=== PATIENT | male | born 1945 | race American Indian/Alaskan Native ===

== ENCOUNTER 2018-06-21 09:59 | Inpatient (IN) | payer MEDICARE, OTHER ==
[~2018-06-21] VITALS: Ht 177.8 cm; Wt 83.9 kg
[~2018-06-21 09:59] MED LIST: CYCLOBENZAPRINE10 MG PO; FENOFIBRATE160 MG PO; LEVOTHYROXINE25 MCG PO; METFORMIN HCL500 MG PO; NIFEDIPINE ER30 M1 PO; NORCO 7.5-3251 EACH PO; OMEGA-31000 MG PO; SIMVASTATIN40 MG PO; VITAMIN D33000 UNIT PO
--- OUTSIDE RECORDS SUMMARY | 2018-06-21 10:02 | XMS ---
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 Tyesha has no Care Guidelines for this patient. María VISIT COUNT (12 MO.) 1 BALBIR [place] TOTAL 1 NOTE: Visits indicate total known visits. ED/UCC VISIT TRACKING (12 MO.) 06/21/2018 10:00 BALBIR [place] TYPE: Emergency COMPLAINT: - L KNEE PAIN/INJURY INPATIENT VISIT TRACKING (12 MO.) No inpatient visits to display in this time frame [email or web address]
[2018-06-21] MEDS ORDERED: MAGNESIUM400 M1 PO (11:55)
--- NOTE | 2018-06-21 13:16 | EKG ---
[facility] [address] [facility] [place] [address] Signed Normal sinus rhythm Normal ECG No previous ECGs available Confirmed by WESLEY MCELROY MD ([id number]) on 06/21/2018 1:16:14 PM Electronically Signed By: WESLEY MCELROY MD 06/21/18 1316 PATIENT NAME: YESIKA RODRIGUEZ Alec Electrocardiogram DATE OF : 47 PHYSICIAN: WESLEY MCELROY MD REPORT #: [id number] REPORT IS CONFIDENTIAL AND NOT TO BE RELEASED WITHOUT AUTHORIZATION
--- NOTE | 2018-06-21 13:54 | NUR ---
06/21/18 1354 Sheets,Ingrid 1347 PT ARRIVED TO PACU DROWSY, RESP EVEN AND UNLABORED ON 6L VIA MASK. PT WAKES TO VERBAL STIMULI AND DENIES PAIN AND NAUSEA. PT REPORTS TOES ARE NUMB.
--- NOTE | 2018-06-21 14:37 | NUR ---
arrived to room 115 on bed with help from Ingrid FRANKLIN from PACU. report received. patient states no pain currently. can feel feet and moves toes, peripheral pulses present and palpable. ice pack applied to left knee area. some drainage noted on dresssing on left side just below knee around one of the pins, about 2 inches in diameter.
--- NOTE | 2018-06-21 14:52 | NUR ---
DR MORA NOTIFIED OF HOSPITALIST CONSULT.
--- NOTE | 2018-06-21 15:09 | NUR ---
IV IN LEFT AC IS PRESENT. 20G, FLOWING WELL.
--- NOTE | 2018-06-21 16:34 | NUR ---
CONTINUES TO REST IN BED WITH FAMILY VISITING. PATIENT STATES PAIN DID NOT GET BETTER WITH THE 1 PILL OF OXYCODONE SO A SECOND DOSE GIVEN. SOME SMALL AMOUNT OF SANGUINESS DRAINAGE ON FRONT PIN JUST BELOW KNEE ABOUT 3/4" IN DIAMETER.
--- NOTE | 2018-06-21 16:45 | NUR ---
Medications reconciled with patient and
--- NOTE | 2018-06-21 19:55 | NUR ---
REPORT RECEIVED, PT RESTING IN BED, O2 SAT 96%, PT'S LEFT LEG ELEVATED ON PILLOW, MODERATE AMOUNT OF DRAINAGE NOTED FROM LEFT LEG SURGICAL INCISION, DAY SHIFT RN STATES THAT DRAINAGE IS UNCHANGED FROM PREVIOUS, PT EDUCATED TO UTILIZE CALL LIGHT IF ANY NEEDS ARISE, PT AGREEABLE, PT DENIES ANY REQUESTS AT THIS TIME, CALL LIGHT WITHIN REACH, FALL PRECAUTIONS IN PLACE, IV FLUIDS INFUSING PER EMAR WNL.
--- NOTE | 2018-06-21 21:13 | NUR ---
PT RESTING IN BED, PT STATES PAIN IN LEFT LEG IS 7-8/10, PT GIVEN PRN OXYCODONE X2 PER EMAR, PT RESTING IN BED, EXTERNAL FIXATION APPEARS INTACT, MODERATE AMOUNT OF DRAINAGE NOTED ON GAUZE, CHUX REPLACED BENEATH, NO NEW DRAINAGE NOTED FROM PREVIOUS INSPECTION, PT'S LEFT LEG ELEVATED ON PILLOW, PULSES FELT, EQUAL, CAP REFILL WNL, PT STATES HE DOES HAVE SOME REMAINING NUMBNESS/TINGLING HOWEVER THE PATIENT STATES IS SLIGHT AND NOTES PALPATION, SCD ON RIGHT LEG, HEEL PROTECTORS ON, PT ON CPOX, O2 SAT 96% ON RA, DENIES SOB/CP, DENIES NAUSEA, IV FLUIDS INFUSING PER EMAR, EDUCATION PROVIDED REGARDING MEDICATIONS AND SIDE EFFECTS, PT AGREEABLE TO POC, HEART SOUNDS REGULAR, BT ACTIVE, LS COURSE IN LEFT LOBES, SLIGHT WHEEZE NOTED IN RIGHT LOBES, PT ENCOURAGED TO COUGH/ DEEP BREATH WELL USE IS. PT AGREEABLE. PT DENIES ANY NEEDS AT THIS TIME, FALL PRECAUTIONS IN PLACE, CALL LIGHT WITHIN REACH.
--- NOTE | 2018-06-21 21:59 | NUR ---
PT RESTING IN BED, EYES CLOSED, BREATHS EVEN, UNLABORED, NO REQUESTS AT THIS TIME, O2 SAT 95% ON RA, CALL LIGHT WITHIN REACH, FALL PRECAUTIONS IN PLACE.
--- NOTE | 2018-06-21 23:31 | NUR ---
SCHEDULED MEDS ADMINISTERED, PT AOX4, APPROPRIATE, PT GIVEN NEW ICE TO LEFT LEG, EXTERNAL FIXATION APPEARS INTACT, PT'S PULSES REMAIN EQUAL, CAP REFILL WNL. HEEL PROTECTORS ON, SCD ON PT'S RIGHT LEG. NO C/O SIGNIFICANT PAIN, PT DESCRIBES "SORE", IV FLUIDS INFUSING PER EMAR, EDUCATION PROVIDED REGARDING PAIN MANAGEMENT. MODERATE SANGUINEOUS DRAINAGE REMAINS UNCHANGED FROM PREVIOUS ASSESSMENT, NO REQUESTS AT THIS TIME, CALL LIGHT WITHIN REACH, FALL PRECAUTIONS IN PLACE.
--- NOTE | 2018-06-22 00:37 | NUR ---
PT GIVEN PRN PAIN MEDICATION PER EMAR PER PT'S REQUEST, PT STATES PAIN OF 7/10 IN LEFT LEG, NO FURTHER REQUESTS AT THIS TIME, CALL LIGHT WITHIN REACH, SCD'S ON, HEEL PROTECTORS ON, FALL PRECAUTIONS IN PLACE, IV FLUIDS INFUSING PER EMAR.
--- NOTE | 2018-06-22 02:05 | NUR ---
VITALS AND I&OS DONE AND CHARTED. FRESH WATER GIVEN. I INFORMED HIS RN PEDRO THAT PT ASKED FOR PAIN MEDS. BEDSIDE TABLE AND CALL LIGHT IN REACH.
--- NOTE | 2018-06-22 02:15 | NUR ---
PT AWAKE, AOX4, VSS, PT GIVEN NEW ICE APPLIED TO PT'S LEFT LEG, NO C/O SIGNIFICANT PAIN, EXTERNAL FIXATION INTACT, DRAINAGE REMAINS UNCHANGED, PULSES EQUAL, CAP REFILL WNL, SCD ON RIGHT FOOT, HEEL PROTECTORS ON, PILLOW UNDER LEFT LEG, ASSESSMENT COMPLETE, PT DENIES ANY NUMBNESS OR TINGLING IN BILAT EXTREMITIES, PT'S WHEEZES NOTED IN BILATERAL LOWER LOBES, PT ENCOURAGED TO COUGH/ DEEP BREATH, ALSO ENCOURAGED TO USE IS, PT RECEPTIVE TO EDUCATION. NO REQUESTS AT THIS TIME, CALL LIGHT WITHIN REACH, FALL PRECAUTIONS IN PLACE. IV FLUIDS INFUSING PER EMAR WNL.
--- NOTE | 2018-06-22 02:40 | NUR ---
PT RESTING IN BED, EYES CLOSED, BREATHS EVEN, UNLABORED, NO REQUESTS AT THIS TIME, CALL LIGHT WITHIN REACH, FALL PRECAUTIONS IN PLACE. SCD'S ON, HEEL PROTECTORS ON, PILLOW UNDER LEFT LEG.
--- NOTE | 2018-06-22 05:04 | NUR ---
CALL LIGHT ANSWERED, PT REQUESTING PRN PAIN MEDICATION FOR 8/10 PAIN IN LEFT LEG, PT STATES THAT PREVIOUS PAIN MEDICATION HAS WORN OFF, PT GIVEN PRN PAIN MEDICATION AT THIS TIME, PT DENIES NEED FOR FURTHER PRN PAIN MEDICATION FOR BREAK THROUGH PAIN, DISCUSSED PAIN MANAGEMENT WITH PT WELL MEDICATIONS, PT DENIES FURTHER NEED FOR PAIN MANAGEMENT AT THIS TIME, NEW ICE PROVIDED, SMALL INCREASE IN SANGUINEOUS DRAINAGE NOTED ON GAUZE BEHIND PT'S KNEE, DISCUSSED WITH TRANSPORTATION PROGRAM DIRECTOR WELL BREAD PAN GREASER, DRAINAGE APPEARS DRY, EXTERNAL FIXATOR APPEARS INTACT, PILLOW REMAINS UNDER LEFT LEG, HEEL PROTECTORS ON, PULSES EQUAL, SCD APPLIED TO PT'S RIGHT LEG. PT DENIES ANY REQUESTS AT THIS TIME, IV FLUIDS INFUSING PER EMAR, CALL LIGHT WITHIN REACH, FALL PRECAUTIONS IN PLACE.
--- NOTE | 2018-06-22 06:20 | NUR ---
PT AOX4 THIS SHIFT, PT RECEIVED PRN PAIN MEDICATION X3 THIS SHIFT RELATED TO PAIN IN PT'S LEFT LEG, ICE APPLIED TO PT'S LEFT LEG, PILLOW UNDER LEG WELL. HEEL PROTECTORS ON, SCD'S ON RIGHT LEG, IV FLUIDS INFUSING PER EMAR, PT RECEIVED SCHEDULED ABX X2 THIS SHIFT PER EMAR. EXTERNAL FIXATION TO LEFT LEG REMAINS INTACT, SMALL AMOUNT OF SANGUINEOUS DRAINAGE OVER THE NIGHT. PT'S VSS, URINE OUTPUT QS, AFEBRILE. =
--- NOTE | 2018-06-22 06:54 | NUR ---
PT C/O 11/19 PAIN, REQUESTING FURTHER PAIN MANAGEMENT, DR. MORSE CALLED, NEW ORDER FOR OXYCODONE 5-15 MG Q3 PRN PAIN, ALSO NEW ORDER FOR GABAPENTIN 300 MG PO TID, NO FURTHER NEW ORDERS, ALSO NOTIFIED THE MD OF PT'S CURRENT SWELLING WELL SMALL AMOUNT OF INCREASED SANGUINEOUS DRAINAGE. NO FURTHER NEW ORDERS. TORB.
--- NOTE | 2018-06-22 07:28 | NUR ---
BEDSIDE REPORT RECEIVED FROM NOEMI VASQUEZ. PT RESTING SUPINE IN BED, REPORTS PAIN TO LEFT LEG, NOEMI VASQUEZ TO ADMINISTER PRN PO PAIN MEDS. LEFT LOWER LEG ELEVATED ON PILLOW AND EXTERNAL FIXATION DEVICE INTACT SOME BLEEDING NOTED TO FRONT KNEE PIN AND PIN TO LEFT LATERAL ASPECT OF LE. PER NOEMI VASQUEZ MD IS AWARE. CMS INTACT DISTALLY TO BILAT LE'S. CALL LIGHT AND H20 IN REACH.
--- NOTE | 2018-06-22 07:30 | NUR ---
PT GIVEN PRN PAIN MEDICATION PER EMAR PER PT'S REQUEST, PT TOLERATED WELL, NO FURTHER REQUESTS AT THIS TIME, HEEL PROTECTORS ON, SCD'S ON, PILLOW UNDER LEFT LEG, EXTERNAL FIXATION INTACT, CALL LIGHT WITHIN REACH, FALL PRECAUTIONS IN PLACE. IV FLUIDS INFUSING PER EMAR WNL.
--- NOTE | 2018-06-22 10:31 | OR ---
[facility] [address] [place], [place] [address] Signed DATE OF OPERATION: 06/21/2018 SURGEON: Avtar Gallego MD PREOPERATIVE DIAGNOSIS: Grade 2 open tibial plateau fracture, Schatzker V. POSTOPERATIVE DIAGNOSIS: Grade 2 open tibial plateau fracture, Schatzker V. PROCEDURES PERFORMED: 1. Irrigation and debridement of skin, subcutaneous tissue, and bone. 2. Left knee arthrotomy with irrigation and debridement of open knee injury. 3. Closed reduction, left proximal tibia. 4. Application of external fixator, left proximal tibia. GUM SPRAYER: Yoanna Gutierrez PA-C. Yoanna was present and critical for positioning, retraction, and wound closure and application of the external fixator. ANESTHESIA: Spinal. BLOOD LOSS: Minimal. TOURNIQUET TIME: Zero. IMPLANTS: Synthes large ex fix. BRIEF HISTORY: Vignesh is a 72-year-old gentleman with history of a ground level fall on the ice this morning. He was transported by ambulance to the emergency department where radiographs revealed displaced bicondylar proximal tibia fracture with subcutaneous air in the entire knee and tracking down both medial and lateral tibia. He did have a 2 cm transverse laceration at the tibial tuberosity. Risks and benefits of operative treatment were discussed with him, he elected to proceed. Electronically Signed By: AVTAR GALLEGO MD 06/22/18 1031 PATIENT NAME: VIGNESH RODRIGUEZ OPERATIVE REPORT DATE OF : 47 REPORT #: [id number] PHYSICIAN: AVTAR GALLEGO MD PCP: ANABELA SCOTT NP REPORT IS CONFIDENTIAL AND NOT TO BE RELEASED WITHOUT AUTHORIZATION [facility] [address] [place], [place] [address] Signed DESCRIPTION OF PROCEDURE: Once consent was obtained, he was taken to the operating room. After adequate anesthesia, he was placed on operating table. All downside pressure points well padded. The left leg was prepped and draped in a standard sterile fashion. The arthrotomy was performed first with the skin incision medially, taken through skin and subcutaneous tissue, median patellar arthrotomy was performed. We did not extend this into the extensor mechanism. The knee was debrided and 3 L of antibiotic irrigation under pulse lavage was used to irrigate the knee. Subcutaneously, we then dissected down to the patellar tendon. The tibial tuberosity appeared to be split on the radiographs and CT, however, the patellar tendon was firmly attached and did not require any further workup. We did notice subcutaneous tunneling from the anterior laceration both medial and laterally. All of this was washed out using 3 L of the antibiotic irrigation under pulse lavage. Once that was completed, two pins were placed in the midshaft tibia under image intensifier guidance, two 5.0 Schanz pins were then placed, one medial and one lateral just below the articular surface and a standard delta frame was built and under closed reduction, the connectors were all tightened. A final pin was then placed in the proximal tibia just below the fracture and attached to the tyesha and tightened. Excellent stability was obtained at the end of the procedure. The arthrotomy was closed using #2 Stratafix, #0 Stratafix for subcutaneous tissue, and michale for the skin and the laceration. The wounds were dressed with a Mepilex Ag dressing and sterile gauze for all pin sites. It was then wrapped with two layers of Kerlix. Once this was completed, he was awakened and taken to the recovery room in satisfactory condition. All sponge, needle, and instrument counts were correct. POSTOPERATIVE COURSE: We will keep him in the hospital and plan on return to the operating room Saturday afternoon for repeat washout and conversion to an open reduction and internal fixation with lateral plating system. Avtar Gallego MD BA/NANCYL /[id number] Copies: Electronically Signed By: AVTAR GALLEGO MD 06/22/18 1031 PATIENT NAME: VIGNESH RODRIGUEZ OPERATIVE REPORT DATE OF : 47 REPORT #: [id number] PHYSICIAN: AVTAR GALLEGO MD PCP: ANABELA SCOTT NP REPORT IS CONFIDENTIAL AND NOT TO BE RELEASED WITHOUT AUTHORIZATION [facility] [address] [place] [address] [place] [address] Signed ~ Electronically Signed By: AVTAR GALLEGO MD 06/22/18 1031 PATIENT NAME: VIGNESH RODRIGUEZ OPERATIVE REPORT DATE OF : 47 REPORT #: [id number] PHYSICIAN: AVTAR GALLEGO MD PCP: ANABELA SCOTT NP REPORT IS CONFIDENTIAL AND NOT TO BE RELEASED WITHOUT AUTHORIZATION
--- NOTE | 2018-06-22 12:15 | NUR ---
WENT IN TO PT'S ROOM TO ASSESS PAIN CONTROL. STATES IT IS STILL HIGH 8\10 BUT TOLERABLE NOW. TOLD HIM TO MAKE SURE TO CALL IF HE NEEDED ANYTHING. INFORMED HIM THAT I WOULD PERSONALLY BE CHECKING IN ON HIS PAIN CONTROL AND WOULD CALL DR MORSE IF NEEDED. HE STATED THAT IT WAS CONTROLLED ENOUGH RIGHT NOW TO NOT CALL THE
--- NOTE | 2018-06-22 13:25 | NUR ---
PT RESTING RECLINED IN CHAIR, RESPIRATIONS EVEN AND UNLABORED. ASSESSMENT COMPLETED. PT STATES PAIN IS TOLERABLE TO LEFT LE. FRESH WATER AND CALL LIGHT IN REACH. I/O'S DOCUMENTED, PT CONTINUES TO PRODUCE QS CLEAR ORANGE URINE OUTPUT.
--- NOTE | 2018-06-22 15:13 | NUR ---
PT SITTING UP IN CHAIR REPORTS 8/10 PAIN SO PO OXYCODONE 15MG ADMINISTERED, PO GABAPENTIN ADMINISTERED . IV OFIRMEV ADMINISTERED. PER PT REQUEST PT ASSISTED UP TO BEDSIDE COMMODE WITH 3PA AND FWW. CALL LIGHT IN REACH AND PT AGREES TO USE WHEN FINISHED ON COMMODE. NO FURTHER NEEDS/CONCERNS VOICED.
--- NOTE | 2018-06-22 15:20 | NUR ---
PT RESTING IN CHAIR, LEFT LOWER EXTREMITY ELEVATED ON PILLOW, DISTAL LLE CMS INTACT. CALL LIGHT AND H20 IN REACH. NO NEEDS/CONCERNS VOICED.
--- NOTE | 2018-06-22 16:00 | NUR ---
Fresh ice water provided and ice packs applied to left lower extremity. LLE remains elevated on pillow and pt states he is comfortable. Distal cms intact. Call light,h20 and personal belongings in reach. Pt inquires about time of surgery and was informed it would likely occur early afternoon and was also reminded that he will be made npo after midnight tonight. Pt verbalized understanding no further needs/concerns voiced.
--- NOTE | 2018-06-22 17:17 | NUR ---
PT ASSISTED FROM CHAIR TO BED WITH 2PA AND FWW, PT TOLERATED TRANSFER WELL. WHEN ASKED IF PAIN IS TOLERABLE PT STATES "YEAH FOR NOW". PT AGREES TO USE CALL LIGHT IF PAIN FEELS LIKE IT IS INCREASING. PT VERBALIZED UNDERSTANDING. LLE ELEVATED ON PILLOW, SCD TO RLE. ICE PACKS TO LLE, CMS INTACT TO BILAT FEET. PERSONAL ITEMS, H2O AND CALL LIGHT ARE IN REACH. PT DENIES FURTHER NEEDS OR CONCERNS. IV MAINTENANCE FLUIDS INFUSING.
--- NOTE | 2018-06-22 17:30 | NUR ---
PT STATES THAT HIS PAIN CONTROL IS BETTER THIS EVENING. STILL PAINFUL ON MOVEMENT BUT MORE TOLERABLE THAN EARLIER. PT ABLE TO EAT DINNER AND STATED THAT TURKEY SANDWHICH WAS GOOD.
--- NOTE | 2018-06-22 19:30 | NUR ---
REPORT RECEIVED, PT RESTING IN BED, EYES CLOSED, BREATHS EVEN, NO REQUESTS AT THIS TIME, CALL LIGHT WITHIN REACH, FALL PRECAUTIONS IN PLACE.
--- NOTE | 2018-06-22 20:00 | NUR ---
CALL LIGHT ANSWERED, PT C/O 02/19 PAIN IN HIS LEFT LEG, MOSTLY AROUND HIS KNEE, DR. MORSE CALLED AND NOTIFIED OF PT'S UNCONTROLLED PAIN, NEW ORDER FOR 1MG-2MG DILAUDID PO Q4 PRN BREAK THROUGH PAIN, DR. MORSE INSTRUCTED FOR 2MG DILAUDID TO BE GIVEN NOW. PT GIVEN ORDERED PAIN MED, EDUCATION PROVIDED TO PT REGARDING PAIN MEDICATION, AND TO NOTIFY ME OF PAIN THAT IS UNCONTROLLED. WILL CONTINUE TO MONITOR, PT CURRENTLY RESTING IN BED. ICE APPLIED TO LEFT LEG, PILLOW BENEATH LEG, HEEL PROTECTORS ON, SCD ON RIGHT LEG. NO FURTHER REQUESTS AT THIS TIME, CALL LIGHT WITHIN REACH, FALL PRECAUTIONS IN PLACE.
--- NOTE | 2018-06-22 22:00 | NUR ---
IN ROOM TO ADMIN SCHEDULED MEDS, PT SLIGHTLY DROWSY, EASY TO AROUSE, PT STATES PREVIOUS PAIN MEDICATION HAS STARTED TO HELP BUT NOT ENTIRELY, PT RATES PAIN AT 8/10 IN HIS LEFT LEG/KNEE, PT GIVEN PRN PAIN MEDICATION 15MG OXYCODONE PER EMAR, EDUCATION PROVIDED REGARDING PAIN MANAGEMENT, ASSESSMENT COMPLETE, PT'S LS CLEAR, OCCASIONAL DRY COUGH NOTED, NONPRODUCTIVE, PT ENCOURAGED TO COUGH/DEEP BREATH WELL USE I.S. ON RA, O2 SAT > 95%, BT ACTIVE. PT'S LEFT LEG REMAINS IN EXTERNAL FIXATOR, REMAINS INTACT, NO NEW DRAINAGE NOTED FROM PREVIOUS OBSERVATION, NEW ICE APPLIED TO LEFT LEG. NO SIGNIFICANT WARMTH OR SWELLING NOTED IN PT'S LLE, PULSES EQUAL, HEEL PROTECTORS ON, SCD ON RIGHT LEG. NO REQUESTS AT THIS TIME, CALL LIGHT WITHIN REACH, FALL PRECAUTIONS IN PLACE.
--- NOTE | 2018-06-22 23:03 | NUR ---
PT'S EYES CLOSED, BREATHS EVEN, UNLABORED, ON RA, O2 SAT 97%, PT RESTING IN BED, NO REQUESTS FROM PT AT THIS TIME, CALL LIGHT WITHIN REACH, FALL PRECAUTIONS IN PLACE.
--- NOTE | 2018-06-23 00:33 | NUR ---
PT ASLEEP, EYES CLOSED, BREATHS EVEN, UNLABORED, O2 SAT 97%, ON RA, NO REQUESTS AT THIS TIME, PT NPO SINCE MIDNIGHT, CALL LIGHT WITHIN REACH, FALL PRECAUTIONS IN PLACE, IV FLUIDS INFUSING PER EMAR WNL. SCD'S ON, HEEL PROTECTORS ON.
--- NOTE | 2018-06-23 01:25 | NUR ---
PT AWAKE, STATING "THE PAIN IS STARTING TO CREEP BACK UP ON ME" PT RATED PAIN 5/10, PRN PAIN MEDICATION GIVEN PER EMAR. PT EDUCATED TO NOTIFY THIS RN IF FURTHER PAIN MEDICATION IS REQUIRED, PT AGREED, NO FURTHER REQUESTS AT THIS TIME, IV FLUIDS INFUSING PER EMAR, ASSESSMENT COMPLETE, NO NEW DRAINAGE NOTED ON PT'S DRESSING FROM PREVIOUS ASSESSMENT. CALL LIGHT WITHIN REACH, FALL PRECAUTIONS IN PLACE. SCD'S ON, HEEL PROTECTORS ON, PILLOW UNDER LEFT LEG.
--- NOTE | 2018-06-23 02:00 | NUR ---
PT RESTING IN BED, EYES CLOSED, BREATHS EVEN, UNLABORED, NO REQUESTS AT THIS TIME, ON RA, O2 SAT 96%, CALL LIGHT WITHIN REACH, FALL PRECAUTIONS IN PLACE.
--- NOTE | 2018-06-23 03:00 | NUR ---
PT AWAKE, VOIDING IN URINAL INDEPENDENTLY, PT STATES THAT HE JUST WOKE UP TO URINATE AND NOTES THAT HIS PAIN IS "STARTING TO FLARE BACK UP AGAIN" PT DESCRIBES PAIN 4-5/10, PT GIVEN PRN PAIN MEDICATION PER EMAR PER PT'S REQUEST, NO FURTHER REQUESTS AT THIS TIME, CALL LIGHT WITHIN REACH, FALL PRECAUTIONS IN PLACE, IV FLUIDS INFUSING PER EMAR WNL. SCD'S ON, HEEL PROTECTORS ON, PILLOW BENEATH LEFT LEG.
--- NOTE | 2018-06-23 03:29 | NUR ---
PT AWOKE STATING HIS PAIN IS CURRENTLY AT A 3/10 AND THAT HE IS COMFORTABLE WITH HIS PAIN AT THAT LEVEL, ICE REMOVED FROM PT'S LEG TEMPORARILY PER PT'S REQUEST AFTER HE ASKED FOR A BREAK FROM ICE WHILE SLEEPING. NO FURTHER REQUESTS AT THIS TIME, SCD ON, HEEL PROTECTORS ON, LEFT LEG ON PILLOW, EXTERNAL FIXATOR APPEARS INTACT, NO NEW DRAINAGE, CALL LIGHT WITHIN REACH, FALL PRECAUTIONS IN PLACE. VSS, O2 SAT 99% ON RA.
--- NOTE | 2018-06-23 04:30 | NUR ---
PT RESTING IN BED, AWAKE, USING THE URINAL, PT STATES THAT HIS PAIN REMAINS A 5/10, EDUCATION PROVIDED REGARDING PAIN MANAGEMENT AND MEDICATIONS, PT REQUESTING PRN PAIN MEDICATION. PT GIVEN 10MG OXYCODONE PER PT'S REQUEST PRN PAIN, DISCUSSED WITH ELEMENTARY SCHOOL COUNSELOR, PT'S O2 SAT REMAINS > 95%, NO FURTHER REQUESTS AT THIS TIME, CALL LIGHT WITHIN REACH, FALL PRECAUTIONS IN PLACE, IV FLUIDS INFUSING PER EMAR WNL. SCD'S ON, HEEL PROTECTORS ON, NEW ICE PROVIDED TO PT'S LEFT LEG, PILLOW REMAINS UNDER LEFT LEG, NO SIGNS OF NEW DRAINAGE.
--- NOTE | 2018-06-23 05:00 | NUR ---
PT AOX4, APPROPRIATE, PRN OXYCODONE/DILAUDID FOR PAIN RELATED TO LEFT LEG, NO NEW DRAINAGE NOTED ON LEFT LEG DRESSING, ICE APPLIED TO LEG, SCD ON RIGHT LEG, HEEL PROTECTORS ON BILATERALLY, PILLOW UNDER LEFT LEG WELL. PT HAS BEEN ABLE TO SLEEP THIS SHIFT, ON CPOX DUE TO NARCOTIC USE, O2 SAT > 95% ON RA THROUGHOUT NIGHT, PT NPO SINCE MIDNIGHT FOR UPCOMING SURGERY, IV FLUIDS/ABX INFUSED PER EMAR WNL, VSS, AFEBRILE, URINE OUTPUT QS.
--- NOTE | 2018-06-23 05:19 | NUR ---
PT RESTING IN BED, EYES CLOSED, BREATHS EVEN, UNLABORED, NO REQUESTS AT THIS TIME, CALL LIGHT WITHIN REACH, FALL PRECAUTIONS IN PLACE, O2 SAT 97% ON RA.
--- NOTE | 2018-06-23 06:30 | NUR ---
PT FOUND ASLEEP UPON ENTERING ROOM, PT DROWSY, EASY TO AWAKE, PT RATES PAIN OF 2/10, STATES THAT HE IS COMFORTABLE WITH THAT, AND DECLINES NEED FOR PRN PAIN MEDICATION AT THIS TIME, PT EDUCATED TO NOTIFY IF NEED FOR PRN PAIN MEDICATION ARISES, PT'S VSS, AFEBRILE, URINE OUTPUT QS, HAS BEEN NPO SINCE MIDNIGHT, NO REQUESTS AT THIS TIME, CALL LIGHT WITHIN REACH, FALL PRECAUTIONS IN PLACE. SCD'S ON, HEEL PROTECTORS ON, IV FLUIDS INFUSING PER EMAR WNL.
--- NOTE | 2018-06-23 07:15 | NUR ---
REPORT RECEIVED FROM PEDRO FRANKLIN. PT RESTING IN BED, REPORTS PAIN OF 4/10. 97% O2 SATURATION ON ROOM AIR. IV FLUIDS INFUSING. DRESSING INTACT WITH SMALL AMOUNT OF RED DRAINAGE ABOUT 2" IN DIAMETER. FIXATOR IN PLACE. ICE PACK, SCDS, HEEL PROTECTORS IN PLACE. NO REQUESTS OR COMPLAINTS AT THIS TIME. CALL LIGHT WITHIN REACH.
--- NOTE | 2018-06-23 07:30 | NUR ---
THIS RN TO ROOM WITH PAIN MEDICATION FOR PT FOR 5/10 PAIN IN LLE. PAIN MEDICATION GIVEN. ASSESSMENT DONE. CMS INTACT. PT REPORTS NOMRAL SENSATION AND IS ABLE TO MOVE TOES/LEG. DRESSING CONTINUES TO SHOW 2" RED DRAINAGE DISTAL TO KNEE. NO NEW DRAINAGE NOTED. SCD, HEEL PROTECTORS IN PLACE. ICE PACK REFILLED. BANDAID TO LEFT ELBOW "SCRATCH FROM MY FALL" HAS COME LOOSE, ALLEVYN APPLIED. ALMAS NURSE TO ROOM STATING SURGICAL DEPARTMENT WILL BE COMING TO TAKE PT FOR HIS SURGERY AND A BLOCK FOR PAIN, IN THE NEXT 15-30 MINUTES. OTOLARYNGOLOGY PHYSICIAN CALLED REGARDING MORNING MEDICATIONS. OTOLARYNGOLOGY PHYSICIAN STATES TO GIVE MORNING DOSES OF TYLENOL, GABAPENTIN, AND PANTOPRAZOL BUT HOLD MIRALAZ AND SENNA. SEE MAR FOR MEDICATIONS GIVEN. OR ELECTRONICS ENGINEERING MANAGERANASTASIYA, CALLED REGARDING PRE OP ABX. OR CHARGE STATES THEY WILL TAKE CARE OF THE PRE OP ABX ORDERS AFTER PT ARRIVES TO SURGICAL UNIT. PT SWITCHED TO LR ON STRAIGHT TUBING PER OTOLARYNGOLOGY PHYSICIAN ORDER. PT ABLE TO VOID 300ML BEFORE LEAVING MED/SURG. YARDING AND FOLDING MACHINE OPERATORANASTASIYA FRANKLIN, TO BEDSIDE, REPORT GIVEN. PT WHEELED FROM UNIT. NO ADDITIONAL REQUESTS OR COMPLAINTS AT THIS TIME.
--- NOTE | 2018-06-23 10:12 | NUR ---
PT VOIDS 250 MLS YELLOW URINE IN URINAL.
--- NOTE | 2018-06-23 14:14 | NUR ---
06/23/18 1414 Ingrid Larsen 1406 PT ARRIVED TO PACU ON 3L OXY MASK, RESP EVEN AND UNLABORED. PT DENIES NAUSEA AND PAIN. PT AWAKE OFF AND ON. PT REORIENTED TO PACU.
--- NOTE | 2018-06-23 14:40 | NUR ---
PT ARRIVED FROM PACU. PT DENIES PAIN AND NAUSEA. PT TOLERATING SIPS OF WATER. COFFEE PROVIDED PER PT REQUEST. IV FLUIDS STARTED WITH NEW TUBING. MEDICATIONS GIVEN (SEE MAR). ASSESSMENT DONE. SPINAL LEVEL L1. DRESSING C/D/I. GREEN LIGHT FLASHING ON MANDI CANISTER. ICE PACK IN PLACE. SCD ON. PT PLACED ON CONTINIOUS PULSE OX. O2 SATURATION AT 96% ON ROOM AIR. PT DEMONSTRATES USE OF INCENTIVE SPIROMETER AND REACHES 1200. PT VISITING WITH . BED RAILS UP. BED ALARM ON. CALL LIGHT WITHIN REACH.
--- NOTE | 2018-06-23 15:45 | NUR ---
VITALS AND ASSESSMENT DUE. THIS RN TO BEDSIDE. PT WATCHING TV AND DRINKING COFFEE. PT TOLERATING PUDDING WITHOUT NAUSEA. PT DENIES PAIN. VITALS TAKEN. ASSESSMENT DONE. DRESSING C/D/I AT THIS TIME. ICE IN PLACE. SCD AND HEEL PROTECTORS INPLACE. SPINAL LEVEL NOW S1, PT REPORTS TINGLING IN FEET AND CAN FEEL SCRATCH BUT NOT COLD. PT ASSISTED WITH ORDERING DINNER. NO ADDITIONAL REQUESTS OR COMPLAINTS. BED RAILS UP. CALL LIGHT WITHIN REACH. BED ALARM ON.
--- NOTE | 2018-06-23 16:40 | NUR ---
VITALS AND ASSESSMENT DUE. THIS RN TO BEDSIDE. PT READING ON TABLET AND WATCHING TV. VITALS TAKEN. PT DENIES PAIN AND NAUSEA. ASSESMENT DONE. CMS INTACT WITH SPINAL LEVEL S3 (PT STATES "MY BUTT IS STILL NUMB"). DRESSING C/D/I, GREEN LIGHT FLASHING ON MANDI DRESSING. SCD, HEEL PROTECTORS AND ICE PACK IN PLACE. NO ADDITIONAL REQUESTS OR COMPLAINTS AT THIS TIME. BED RAILSUP. BED ALARM ON. CALL LIGTH WITHIN REACH.
--- NOTE | 2018-06-23 18:19 | NUR ---
PT HERE FOR LEFT OPEN TIBIAL FRACTURE. PT BACK TO SURGERY TODAY. EXTERNAL FIXATION DEVICE REMOVED. NEW DRESINGS INCLUDING MANDI DRESSING NOW IN PLACE. DRESSINGS C/D/I THIS SHIFT. GREEN LIGHT FLASHING ON MANDI CANISTER. PT HAS DENIES PAIN SINCE SURGERY. SPINAL RESOLVED. PT VOIDING QUANTITY SUFFICIENT. ICE PACK IN PLACE. LEG ELEVATED ON 1 PILLOW PER MD ORDER. SCD'S AND HEEL PROTECTORS IN PLACE. PT TOLERATING REGULAR DIET AND DENIES NAUSEA THIS SHIFT. CONTINIOUS PULSE OX IN PLACE WITH O2 SATURATIONS ABOVE 92% ON ROOM AIR. PT USES CALL LIGHT APPROPRIATLY.
--- NOTE | 2018-06-23 19:27 | NUR ---
RECIEVED CHANGE OF SHIFT REPORT FROM DELANO FRANKLIN. URINAL EMPTIED. PATIENT LAYING AWAKE IN BED. WHITE BOARD UPDATED. PATIENT REPORTS PAIN A "1-2/10". CALL LIGHT WITHIN REACH. NO MORE NEEDS AT THIS TIME.
--- NOTE | 2018-06-23 20:45 | NUR ---
ASSESSMENT COMPLETE. MEDICATIONS ADMINISTERED PER JUL ORDER. PATIENT REPORTS PAIN IN LLE "4/10", PRN PAIN MEDICATION PROVIDED PER JUL ORDER. LLE ELEVATED ON PILLOW PER JUL ORDER. SCDs AND HEEL PROTECTORS IN PLACE. FRESH ICE PLACED ON LLE PER ORDER. IV FLUIDS INFUSING PER JUL ORDER. PATIENT DENIES CHEST PAIN, SOB, OR DIFFICULTY BREATHING. DRESSING ON LLE IS CDI, NO SIGNS OF NEW DRAINAGE. STRONG PULSES IN ALL EXTREMITIES, WARM TO TOUCH. PATIENT DENIES HAVING ANY DEFICITS IN SENSATION IN BLE. IV FLUIDS INFUSING PER JUL ORDER. IV PATENT, WNL. CALL LIGHT WITHIN REACH. NO MORE NEEDS AT THIS TIME.
--- NOTE | 2018-06-23 22:47 | NUR ---
ROUNDED ON PATIENT RESTING IN BED WITH EYES CLOSED, RICARDA AWOKE TO THIS RN WALKING IN ROOM. PATIENT REPORTS PAIN IN LLE IS A "2-3/10", PATIENT STATES PAIN IS "BETTER". CPOX WNL. CURTAIN ON WINDOW CLOSED AND LIGHT TURNED DOWN IN ROOM PER PATIENT REQUEST. CALL LIGHT WITHIN REACH. NO MORE NEEDS AT THIS TIME.
--- NOTE | 2018-06-23 23:21 | NUR ---
ROUNDED ON PATIENT TO REPLACE IV FLUID BAG PER MAR ORDER. CPOX, WNL. CALL LIGHT WITHIN REACH. NO MORE NEEDS AT THIS TIME.
--- NOTE | 2018-06-24 01:30 | NUR ---
TEMP RETAKE AFTER USING THE IS.
--- NOTE | 2018-06-24 01:41 | NUR ---
ASSESSMENT COMPLETE. DISCUSSED WITH PATIENT THEIR CURRENT PAIN LEVEL, PATIENT STATES THAT FELT THEIR PAIN WAS ADEQUATELY CONTROLLED WITH X1 PRN 5MG OXYCODONE EARLIER, PATIENT WOULD LIKE TO JUST HAVE X1 PRN 5 MG OXYCODONE AT THIS TIME. PATIENT STATES PAIN LEVEL IS A "4/10" IN LLE, PRN PAIN MEDICATION PROVIDED. DRESSING ON LLE IS CDI, NO NEW DRAINAGE NOTED. MANDI DRESSING FLASHING GREEN LIGHT. LLE ELEVATED ON PILLOW PER ORDER. ICE APPLIED PER ORDER. HEEL PROTECTORS IN PLACE. SENSATION INTACT PER PATIENT REPORT. STRONG PERIPHERAL PULSES. CPOX, WNL. IV FLUIDS INFUSING PER JUL ORDER. CALL LIGHT WITHIN REACH. URINAL AT BEDSIDE. NO MORE NEEDS AT THIS TIME.
--- NOTE | 2018-06-24 04:27 | NUR ---
Pt requested pain meds. Medicated with 15mg oxycodone po. Pt voided 600ml yellow urine in urinal. Ancef 2Gms IVP given as directed. IV site intact.
--- NOTE | 2018-06-24 05:28 | NUR ---
ASSESSMENT COMPLETE. PATIENT DENIES HAVING CHEST PAIN, SOB, OR DIFFICULTY BREATHING. PATIENT DENIES PAIN IN LLE, PATIENT STATES PRN PAIN MEDICATION IS HELPING. DRESSING ON LLE IS CDI, NO SIGN OF NEW DRAINAGE. MANDI DRAIN IS FLASHING GREEN LIGHT. HEEL PROTECTORS IN PLACE. SCDs IN PLACE. LLE ELEVATED ON PILLOW. FRESH ICE PLACED ON LLE. URINAL EMPTIED. FRESH ICE PLACED IN WATER CUP. CPOX WNL. PATIENT REPORTS HAVING FULL SENSATION IN LLE. CALL LIGHT WITHIN REACH. NO MORE NEEDS AT THIS TIME.
--- NOTE | 2018-06-24 05:32 | NUR ---
PATIENT SLEPT FOR MOST OF NIGHT. PRN PAIN MEDICATION PROVIDED X3. DRESSING ON LLE IS CDI, NO NEW DRAINAGE NOTED. SCDS IN PLACE. HEEL PROTECTOR IN PLACE. ICE APPLIED PER ORDER. CPOX, WNL. LEFT LEG ELEVATED ON X1 PILLOW PER ORDER. URINAL AT BEDSIDE. REGULAR DIET. PT/OT. INCENTIVE SPIROMETER AT BEDSIDE, PATIENT EXPRESSED UNDERSTANDING OF ITS USE. PATIENT DENIES ANY DEFICITS IN SENSATION OF BLE.
--- NOTE | 2018-06-24 06:50 | NUR ---
ROUNDED WITH PT PRIMARY NURSE, AYLIN, PT WAS COMPLAING OF 12/20, WAS RECENTLY MEDICATED WITH 15 MG OXYCODONE AT 0427, HE STATES THAT HE WAS SLEEPING AND THE LEFT LEG STARTS THROBBING, DENIES THAT HE WAS IN PAIN ALL NIGHT, IN FACT, STATES THAT THE "BLOCK" HELPED EARLY IN THE SHIFT, BUT CLOSER TO THIS TIME, HE HAS LESS PAIN CONTROL. PT WAS MED WITH DILAUDID 2 MG, FOR BREAKTHROUGH PAIN. AYLIN PLANS TO REPORT TO DAYSHIFT PRIMARY NURSE FOR FOLLOWUP
--- NOTE | 2018-06-24 06:59 | NUR ---
rounded on patient to place sunil hose on right foot. prn pain medication provided for "8/10" in left leg. placed new bag of iv fluids per jul order. call light within reach. no more needs at this time.
--- NOTE | 2018-06-24 07:10 | NUR ---
REPORT RECEIVED FROM NOEMI VIERA. PT RESTING IN BED AND REPORTS 8/10 PAIN, DILAUDID JUST GIVEN. PT VOIDING INTO URINAL, QUANTIY SUFFICIENT. CONTINIOUS PULSE OX READS 97% O2 AND HR = 90. PT STATES HE HAS NO ADDITIONAL REQUESTS OR COMPLAINTS AT THIS TIME. ICE, HEEL PROTECTORS, SCD'S, AND JOHANNA HOSE IN PLACE. DRESSING C/D/I. CALL LIGHT WITHIN REACH.
--- NOTE | 2018-06-24 08:01 | NUR ---
MORNING MEDICATION AND ASSESSMENT DUE. PT AWAKE AND READING IN BED. PT CONTINUES TO REPORT 8/10 PAIN IN LLE. SEE MAR FOR MEDICATION GIVEN. PT ASSISTED UP TO CHAIR, 1PA, FWW. PT HAS DIFFICULTY MOVING LLE AND NEEDS ASSISTANCE CARRYING LEG ACCROSS BED. PT ABLE TO STAND ON RLE AND PIVOT TRANSFER TO CHAIR. PT DEMONSTRATES USE OF INCENTIVE SPIORMETER REACHING 2250. ASSESSMENT DONE. CMS INTACT, DRESSING C/D/I, GREEN LIGHT FLASHING ON MANDI CANISTER. PT DENIES NAUSEA, BREAKFAST ARRIVED. PT EATING. NO ADDITIONAL REQUESTS OR COMPLAINTS AT THIS TIME. CALL LIGHT WITHIN REACH. FRESH ICE PACK PROVIDED, SCD'S, JOHANNA HOSE, HEEL PROTECTORS IN PLACE. LLE RAISED ON ONE PILLOW
--- NOTE | 2018-06-24 09:36 | OR ---
[facility] [address] [place], [place] [address] Signed DATE OF OPERATION: 06/23/2018 SURGEON: Avtar Gallego MD PREOPERATIVE DIAGNOSIS: Grade 2 open left proximal tibia fracture, status post ex fix. POSTOPERATIVE DIAGNOSIS: Grade 2 open left proximal tibia fracture, status post ex fix. PROCEDURES PERFORMED: 1. Removal of external fixator, irrigation and debridement of skin, subcutaneous tissue, and bone. 2. Open reduction and internal fixation of bicondylar proximal tibia fracture. PROMOTIONS DIRECTOR: None. ANESTHESIA: Spinal. BLOOD LOSS: 150 mL. TOURNIQUET TIME: Zero. IMPLANTS: Synthes 8-hole 4.5 periarticular plate with 4.5 and 5.0 screws. BRIEF HISTORY: Vignesh is a 72-year-old gentleman who suffered a fall on Saturday with an open fracture of his proximal tibia with Schatzker and involved by condylar fractures. The fracture was opened with a 2 cm laceration and air noted in the knee and tracking down medially and laterally in the tibia. He was taken to the operating room emergently and underwent irrigation and debridement along with arthrotomy, washing out the knee. The tibia was fixed with an external fixator. He was kept on IV antibiotics and did well over the weekend. He was brought back today for inspection of the wound, removal of the external fixator and possible ORIF. Electronically Signed By: AVTAR GALLEGO MD 06/24/18 0827 Electronically Signed By: AVTAR GALLEGO MD 06/25/18 0859 PATIENT NAME: VIGNESH RODRIGUEZ OPERATIVE REPORT DATE OF : 47 REPORT #: [id number] PHYSICIAN: AVTAR GALLEGO MD PCP: ANABELA SCOTT NP REPORT IS CONFIDENTIAL AND NOT TO BE RELEASED WITHOUT AUTHORIZATION [facility] [address] [place], [place] [address] Signed DESCRIPTION OF PROCEDURE: Once consent was obtained, he was taken to the operating room. After adequate anesthesia, he was placed on the operating room table. All downside pressure points were well padded. The left leg was placed in a well-padded proximal thigh tourniquet. We then removed the external fixator and removed the Schanz pins and prepped the leg in standard sterile fashion. The median parapatellar incision was just to the medial side of the patella and we made the distal lateral incision about 5 cm lateral to this leaving good skin bridge. The skin was incised and taken through skin and subcutaneous tissue. The fascia was then incised along the anterior aspect curving posteriorly at the joint line. The lateral compartment was then elevated and the fracture was reduced and held with a ball-tipped clamp through the pinhole on the medial side. Once adequate reduction was performed, the plate was fashioned to fit the lateral side of the tibia. It was held in position proximally using one of the guide pins for the 5-0 screws. The distal end was then held with a single 4.5 screw in the midportion of the plate. Once multiplanar images were taken, three proximal screws were drilled and appropriate length screws were placed. Two oblique screws were placed distal to this and three more shaft screws were placed down distally. Once this was completed, the wound was copiously irrigated with antibiotic solution. Final radiographs were taken and the wound was washed out as was the fracture using the antibiotic irrigation under pulse lavage. Once this was completed, the patellar tendon was inspected and found to be intact. The fascia was then repaired using 0 Stratafix, subcutaneous tissue with #1 Vicryl and 0 Stratafix, and the skin with michael. The wound was dressed with a MANDI wound VAC dressing and ABDs and sterile gauze. The compartments were quite soft at the end of the procedure. All bleeders were cauterized as we went through and there was no active bleeding. Avtar Gallego MD BA/NANCYL /[id number] Copies: ~ Electronically Signed By: AVTAR GALLEGO MD 06/24/18 0827 Electronically Signed By: AVTAR GALLEGO MD 06/25/18 0859 PATIENT NAME: VIGNESH RODRIGUEZ OPERATIVE REPORT DATE OF : 47 REPORT #: [id number] PHYSICIAN: AVTAR GALLEGO MD PCP: ANABELA SCOTT NP REPORT IS CONFIDENTIAL AND NOT TO BE RELEASED WITHOUT AUTHORIZATION
--- NOTE | 2018-06-24 10:00 | NUR ---
THIS RN TO ROOM TO CHECK ON PT. PT WORKING WITH PHYSICAL THERAPY. PAIN SCALE EDUCATION DONE WITH PT. PT REPORTS 6/10 PAIN AND DENIES NEED FOR ADDITIONAL PAIN MEDICATION AT THIS TIME. PT STATE "ITS BETTER WHEN I'M DOING SOMETHING AND NOT THINKING ABOUT IT." URINAL EMPTIED FO 200ML CLEAR YELLOW URINE. PT CONTINUES WORKING WITH PHYSICAL THERAPIST. NO ADDITIONAL REQUESTS OR COMPLAINTS AT THIS TIME.
--- NOTE | 2018-06-24 11:10 | NUR ---
MEDICATINO AND ASSESSMENT DUE. THIS RN TO BEDSIDE. PT UP TO CHAIR. PT REPORTS 8 PAIN. SEE MAR FOR MEDICATION GIVEN. PT DENIES NASUEA. O2 SATURATION AT 96% ON ROOM AIR. ASSESSMENT DONE. DRESSING C/D/I, CMS INTACT. PHYSICAL THERAPY TO BEDSIDE. PT DOING EXERCISES WITH PHYSICAL THERAPIST. NO REQEUSTS OR COMPLAINTS AT THIS TIME. CALL LIGHT WITHIN REACH.
--- NOTE | 2018-06-24 13:06 | NUR ---
THIS RN TO BEDSIDE TO CHECK ON PT. PT CONTINUES TO REPORT 8/10 PAIN BUT STATES "I CAN WAIT UNTIL THE NEXT PAIN MEDICATION." WILL NOTIFY MD. PT DENIES ADDITIONAL REQUESTS OR COMLAINTS AT THIS TIME. READING FROM TABLET. CALL LIGHT WITHIN REACH. ICE PACKS IN PLACE.
--- NOTE | 2018-06-24 14:06 | NUR ---
PAIN MEDICATION DUE. THIS RN TO BEDSIDE. PT CONTINUES TO REPORT 8/10 PAIN. NO MUSCLE TENSION, DIAPHORESIS, OR GRIMACING NOTED. PT APPEARS RELAXED, PT WATCHING TV. SEE MAR FOR MEDICATION GIVEN. ICE PACKS REFILLED. PT DENIES ADDIITONAL REQUESTS OR COMPLAINTS AT THIS TIME. CALL LIGHT WITHIN REACH.
--- NOTE | 2018-06-24 14:44 | NUR ---
PT ALERT, ORIENTED AND SITTING IN CHAIR. HE IS PLEASANT, WHEN I INFORMED HIM THAT THEIR WERE NO PRIESTS IN TOWN, HE BEGAN TO RELATE HIS LIFE STORY TO ME. I WAS HUMBLED THAT HE BEGAN TO SHARE WITH ME. EXTENDED A BLESSING, RECEIVED AN INVITATION TO RETURN. WILL FOLLOW NEEDED
--- NOTE | 2018-06-24 15:15 | NUR ---
THIS RN TO ROOM TO CHECK ON PT. PT UP IN CHAIR AND VISITING WITH FAMILY. PT RATES PAIN AT 3/10 AND STATES "THE PAIN MEDICATION IS WORKING I THINK." PT CONCERNED ABOUT SLEEPING AT NIGHT AND REQUESTS "SOME MEDICINE TO HELP ME SLEEP." DR. MORSE CALLED. NO NEW ORDERS FOR PAIN CONTROL GIVEN. DR. MORA TO BE CONTACTED REGARDING SLEEP AIDS. PHYSICAL THERAPY TO ROOM TO WORK WITH PT. PIV SALINE LOCED PER MD ORDER, PHARMACY NOTIFIED. PULSE OX DC'D PER PROTOCOL. PTS FAMILY UPDATED, QUESTIONS ANSWERED. NO ADDITIONAL REQUSTS OR COMPLAINTS AT THIS TIME. CALL LIGHT WITHIN REACH.
--- NOTE | 2018-06-24 16:35 | NUR ---
THIS RN SPOKE WITH DR. MORA REGARDING SLEEP AID MEDICATION. ORDER PLACED. PT UPDATED.
--- NOTE | 2018-06-24 16:47 | NUR ---
AFTERNOON ASSESSMENT DUE. PT UP TO CHAIR. PT REPORTS 4/10 PAIN THAT "IS COMING UP." SEE MAR FOR MEDICATION GIVEN. PT DENIES NAUSEA. ASSESSMENT DONE. DRESSING C/D/I, CMS INTACT. ICE PACKS, SCD'S, JOHANNA HOSE IN PLACE. PT DEMONSTRATES USE OF INCENTIVE SPIROMETER, REACHES 2500. PT WATCHING TV AND READING TABLET. PT DENIES ADDITIONAL REQUESTS OR COMPLAINTS. CALL LIGHT WITHIN REACH.
--- NOTE | 2018-06-24 18:58 | NUR ---
THIS RN TO ROOM TO CHECK ON PT. PT REPORTS 3/10 PAIN THAT IS TOLERABLE. PT WATCHING TV AND STATES HE WILL "GO TO BED SOON." NO ADDITIONAL REQUESTS OR COMPLAINTS. CALL LIGHT WITHIN REACH.
--- NOTE | 2018-06-24 18:59 | NUR ---
PT HERE FOR LEFT OPEN TIBIAL FRACTURE, POST OP DAY 1 FROM 2ND SURGICAL REPAIR. PAIN WELL CONTROLED TODAY WITH PRN PAIN MEDICATIONS. PT UP WITH PHYSICAL AND OCCUPATIONAL THERAPY. PT DENIES NAUSEA AND IS TOLERATING REGULAR DIET. CMS INTACT, DRESSING C/D/I. ICE TO DRESSING. SCD'S, JOHANNA HOSE IN PLACE. PIV SALINE LOCKED. CONTINIOUS PULSE OX DC'D. NEW ORDERS FOR MELATONIN PRN FOR SLEEP. PT USES CALL LIGHT APPROPRIATLY.
--- NOTE | 2018-06-24 19:18 | NUR ---
RECIEVED CHANGE OF SHIFT REPORT FROM DELANO FRANKLIN. PATIENT SITTING UP IN CHAIR. POSSESSIONS NEARBY. CALL LIGHT WITHIN REACH. NO MORE NEEDS AT THIS TIME.
--- NOTE | 2018-06-24 19:20 | NUR ---
CHARGE ROUNDING DONE WITH DAY SHIFT CHARGE AND DOUG FRANKLIN. PATINET RESTING IN BED WITH LIGHTS OUT. DENIES ANY NEEDS. CALL LIGHT IN REACH.
--- NOTE | 2018-06-24 20:20 | NUR ---
ASSESSMENT COMPLETE. PATIENT RESTING IN CHAIR FOR DURATION OF ASSESSMENT. PATIENT REPORTS PAIN A "7-8/10" AND DESCRIBES IT "THROBBING"IN LLE , PRN PAIN MEDICATION PROVIDED. PATIENT DECLINED WANTING PRN MEDICATION FOR SLEEP AT THIS TIME, STATING "I'M ALREADY PRETTY TIRED". PATIENT DENIES DEFICITS IN SENSATION OF BLE. DRESSING ON LLE IS CDI, NO NEW DRAINAGE NOTED. LLE ELEVATED ON X1 PILLOW. ICE APPLIED PER ORDER. JOHANNA HOSE IN PLACE ON RLE. SCDs AND HEEL PROTECTORS IN PLACE. 2PA WITH FWW TO BED FROM CHAIR, PATIENT DID NOT APPLY PRESSURE TO LLE, PATIENT TOLERATED WELL. PATIENT DENIES NUMBNESS AND TINGLING IN EXTREMITIES. MEDICATION ADMINSTERED PER JUL ORDER. CALL LIGHT WITHIN REACH. NO MORE NEEDS AT THIS TIME.
--- NOTE | 2018-06-24 23:33 | NUR ---
rounded on patient to provided prn pain medication for reported pain of "7/10" that is "throbbing" pain. urinal emptied. call light with in reach. no more need at this time.
--- NOTE | 2018-06-25 04:02 | NUR ---
ASSESSMENT COMPLETE. PATIENT REPORTS PAIN IN LLE, SPECIFICALLY THE LEFT KNEE A "8-9/10", "THROBBING" PAIN. PRN PAIN MEDICATION PROVIDED PER JUL ORDER. THIS RN ASKED PATIEINT IF HE FELT HIS PAIN IS BETTER CONTROLLED TONIGHT THAN IT WAS LAST NIGHT, PATIENT STATED "YES". FRESH ICE PLACED ON LLE PER ORDER. SCDs IN PLACE. HEEL PROTECTORS IN PLACE. JOHANNA HOSE IN PLACE ON RLE. PATIENT STATES BLE "FEELS NORMAL", DENIES NUMBNESS AND TINGLING. DRESSING ON LLE IS CDI, NO NEW DRAINAGE. MANDI DRAIN FLASHING GREEN LIGHT. MEDICATIONS ADMINISTERED PER JUL ORDER. FRESH WATER BROUGHT TO PATIENT. URINAL EMPTIED. CALL LIGHT WITHIN REACH. NO MORE NEEDS AT THIS TIME.
--- NOTE | 2018-06-25 06:06 | NUR ---
ROUNDED ON PATIENT TO REASSESS PATIENT'S PAIN. PATIENT REPORTS PAIN IS A "3/10" AND PATIENT STATES, PAIN IS "MANAGEABLE". PATIENT SITTING UP IN BED LOOKING AT ISATU. CALL LIGHT WITHIN REACH, NO MORE NEEDS AT THIS TIME.
--- NOTE | 2018-06-25 06:25 | NUR ---
PATIENT SLEPT THROUGHOUT THE NIGHT. PRN PAIN MEDICATION X3. UP IN CHAIR AT BEGINNING OF SHIFT. JOHANNA HOSE, SCDs, AND HEEL PROTECTORS IN PLACE. ICE APPLIED PER ORDER. IV ABX X2. REGULAR DIET. PT/OT. 1 PILLOW UNDER LLE PER ORDER. IS AT BEDSIDE. SALINE LOCKED. URINAL AT BEDSIDE. DRESSING ON LLE IS CDI, NO NEW DRAINAGE NOTED. MANDI DRESSING FLASHING GREEN LIGHT. PATIENT DENIES HAVING DEFICITS IN SENSATION OF LLE. 25% WEIGHT BEARING. 2PA WITH FWW FROM CHAIR TO BED THIS SHIFT.
--- NOTE | 2018-06-25 06:55 | NUR ---
rounded on patient to administer prn pain medication for reported "6-7/10" pain in lle. urinal emptied. call light within reach. no more needs at this time.
--- NOTE | 2018-06-25 07:29 | NUR ---
PT SITTING UP IN BED. STATES HE SLEPT OK LAST NIGHT AND PAIN WAS WELL CONTROLLED, ALTHOUGH RATES IT A 7 RIGHT NOW. DRESSING APPEARS CDI. PT ABLE TO MOVE SELF AROUND IN BED WO ASSISTANCE. HAS ORDERED BREAKFAST.
--- NOTE | 2018-06-25 07:39 | NUR ---
PT EXPECTS TO RETURN HOME UPON DC, MAY NEED EITHER SWING BED OR SNF HE IS QUITE DECONDITIONED. WANTS TO USE WALKER AND WANTS TO USE CRUTCHES FOR GETTING UP THE STAIRS AT HOME, ALREADY HAS CRUTCHES BUT NEEDS A WALKER.
--- NOTE | 2018-06-25 08:04 | NUR ---
PT SITTING IN BED EATING BREAKFAST. TOLD HIM WE WOULD GET HIM UP TO CHAIR AFTER HE IS FINISHED HE DECLINED MOVEMENT UNTIL FINISHED. ASSESSMENT IN. NEXT PAIN MED DUE 1100. PT REPORTS NO FURTHER NEEDS OR CONCERNS. PAIN 11/19
--- NOTE | 2018-06-25 11:01 | NUR ---
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 IN ROOM NOW AFTER WALKING IN [place]. PT TOLERATING WELL AND STATES HE IS NOT AWARE OF THE PAIN RIGHT NOW HE IS BUSY, RATES IT WHILE WALKING A 7/10
--- NOTE | 2018-06-26 07:41 | DS ---
[facility] [address] [place], [place] [address] Signed ADMISSION DATE: 06/21/2018 DISCHARGE DATE: 06/25/2018 ADMISSION DIAGNOSIS: Open left tibial fracture. DISCHARGE DIAGNOSIS: Open left tibial fracture. PROCEDURES PERFORMED: During this hospitalization: 1. Irrigation and debridement of knee and soft tissue. 2. Application of external fixator and closed reduction, left tibia. 3. Removal of external fixator and ORIF, left tibia. BRIEF HISTORY: Vignesh is a 72-year-old gentleman who suffered a ground level fall outside of his house and presented to the ER, where radiographs showed a bicondylar fracture of the tibial plateau with air in the knee and in the soft tissue all the way down both sides of his tibia. He was taken emergently to the operating room, where we performed an arthrotomy, washed out the knee, washed out the soft tissue, and placed in an external fixator. A 48 hours later, he was brought back for soft tissue check, which was found to be good. Another washout was performed and the ex-fix was removed. The tibia was fixed with a long periarticular plate. He tolerated this well and was taken to the recovery room and subsequently to the orthopedic floor. His pain control was marginal with oxycodone and Dilaudid, but he did well. His calf remained soft throughout the hospitalization. He did relatively poorly with physical therapy, he had poor upper body strength and Physical Therapy has felt that he would be a good candidate for continued inpatient rehab and I agreed. Discharge him to swing bed status with continuation of the oxycodone, Dilaudid, and the Xarelto for DVT prophylaxis. He will continue 25% weightbearing and working with Physical Therapy on a daily basis. Should his status change, we will address at that time. Avtar Gallego, MD BA/MODL /[id number] Electronically Signed By: AVTAR GALLEGO MD 06/26/18 0741 PATIENT NAME: VIGNESH RODRIGUEZ DISCHARGE SUMMARY DATE OF : 47 REPORT #: [id number] PHYSICIAN: AVTAR GALLEGO MD PCP: ANABELA SCOTT NP REPORT IS CONFIDENTIAL AND NOT TO BE RELEASED WITHOUT AUTHORIZATION [address] [place] [address] Signed Copies: ~ Electronically Signed By: AVTAR GALLEGO MD 06/26/18 0741 PATIENT NAME: VIGNESH RODRIGUEZ Alec DISCHARGE SUMMARY DATE OF : 47 REPORT #: [id number] PHYSICIAN: AVTAR GALLEGO MD PCP: ANABELA SCOTT NP REPORT IS CONFIDENTIAL AND NOT TO BE RELEASED WITHOUT AUTHORIZATION
== END 2018-06-25 11:00 | disposition swing bed (61) | DRG 494 ==
LOC: ED 09:59 → MS 11:53
PROVIDERS: ADMIT Specialist
PROC: 0QSH35Z Reposition Left Tibia with External Fixation Device, Percutaneous Approach (ICD-10-PCS; principal; 2018-06-21 12:45)
PROC: 0QSH04Z Reposition Left Tibia with Internal Fixation Device, Open Approach (ICD-10-PCS; 2018-06-23)
PROC: 3E0T3BZ Introduction of Anesthetic Agent into Peripheral Nerves and Plexi, Percutaneous Approach (ICD-10-PCS; 2018-06-23)
PROC: 3E0T33Z Introduction of Anti-inflammatory into Peripheral Nerves and Plexi, Percutaneous Approach (ICD-10-PCS; 2018-06-23)
PROC: 0QPHX5Z Removal of External Fixation Device from Left Tibia, External Approach (ICD-10-PCS; 2018-06-23)
DX: S82.142B Displaced bicondylar fracture of left tibia, initial encounter for open fracture type I or II (principal); G89.18 Other acute postprocedural pain; F17.210 Nicotine dependence, cigarettes, uncomplicated; I10 Essential (primary) hypertension; E78.00 Pure hypercholesterolemia, unspecified; J98.4 Other disorders of lung; M25.512 Pain in left shoulder; M25.522 Pain in left elbow; W00.0XXA Fall on same level due to ice and snow, initial encounter; Y92.007 Garden or yard of unspecified non-institutional (private) residence as the place of occurrence of the external cause; Z79.891 Long term (current) use of opiate analgesic; Z79.899 Other long term (current) drug therapy
CPT/HCPCS: 00400; 01480; 36415; 64447; 73560; 73590; 73700; 76942; 80048; 80053; 85025; 85610; 93005; 93010; 94762; 96374; 96375; 97110; 97116; 97161; 97162; 97165; 99285-25; 99406; C1713; J0131; J0690; J1100; J1170; J2250; J2405; J2704; J2765; J2795; J3010; J7120

== ENCOUNTER 2018-06-25 11:00 | Inpatient (IN) | payer MEDICARE, OTHER ==
[~2018-06-25] VITALS: Ht 177.8 cm; Wt 83.9 kg
[~2018-06-25 11:00] MED LIST changes: +MAGNESIUM400 M1 PO
--- NOTE | 2018-06-25 14:15 | NUR ---
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 STATES HE FEELS LIKE HE IS GETTING STRONGER. RATES PAIN 11/19. GIVEN MEDS. LEG ELEVATED ON PILLOW.
--- NOTE | 2018-06-25 14:15 | NUR ---
PT UP AMBULATING IN HALLS USING WALKER WITH P.T. PT IS WORKING HARD-GAVE ENCOURAGEMENT. WILL FOLLOW NEEDED
--- NOTE | 2018-06-25 15:34 | NUR ---
PT EXPECTS TO RETURN HOME UPON DC FROM THE HOSPITAL IS REQUESTING AN RX FOR A COMMODE AND CRUTCHES. EXPLAINED THE INSURANCE WILL NOT PAY FOR HIS WALKER AND CRUTCHES. MEDICARE WILL NOT PAY FOR THINGS FOR THE BATHROOM.
--- NOTE | 2018-06-25 16:31 | NUR ---
PT SITTING IN CHAIR WATCHING TV, EATING A SNACK. STATES HIS PAIN IS OK AND DENIES CONCERNS.
--- NOTE | 2018-06-25 19:20 | NUR ---
CHARGE NURSE REPORT RECEIVED FROM DONN CASTRO IN BED, NO NEEDS AT THIS TIME.
--- NOTE | 2018-06-25 19:35 | NUR ---
PT RESTING IN BED, RR EVEN AND UNLABORED. PT DENIES NEEDS, CALL LIGHT IN REACH.
--- NOTE | 2018-06-25 21:09 | NUR ---
THIS RN IN ROOM TO COMPLETE ASSESSMENT. PT RESTING IN BED, EYES CLOSED. RR EVEN AND UNLABORED. NO FACIAL GRIMACES NOTED.ASSESSMENT COMPLETE. PT A/OX4. PT REPORTS 6/10 PAIN. WHEN ASKED IF PT WISHED TO RECEIVE PRN OXYCODONE, PT STATED, "YES, THEY HELP ME SLEEP". THIS RN PROVIDED EDUCATION REGARDING PURPOSE OF PAIN MEDICATION. PT AGREED TO PRN MELATONIN AND 1 PRN OXYCODONE ALONG WITH SCHEDULED TYLENOL. DRESSING IS CDI, CMS INTACT. PT DENIES FURTHER NEEDS, CALL LIGHT IN REACH.
--- NOTE | 2018-06-26 00:06 | NUR ---
PT RESTING IN BED, EYES CLOSED. RR EVEN AND UNLABORED. PT APPEARS COMFORTABLE, NO RESPIRATORY DISTRESS NOTED. CALL LIGHT IN REACH.
--- NOTE | 2018-06-26 02:27 | NUR ---
THIS RN IN ROOM TO ROUND ON PT. PT FOUND RESTING IN BED, EYES CLOSED, RR EVEN AND UNLABORED. BEDSIDE URINAL EMPTIED. NO FACIAL GRIMACES NOTED, WHEN ASKED, PT REPORTS 7/10 PAIN. PT REPORTS THAT 5MG OXYCODONE GIVEN AT 2100 BROUGHT PAIN DOWN TO A 3/10. 2 OXYCODON GIVEN THIS TIME FOR PAIN CONTROL. PT DENIES FURTHER NEEDS, CALL LIGHT IN REACH.
--- NOTE | 2018-06-26 06:32 | NUR ---
PT A/OX4, PAIN WELL CONTROLLED WITH SCHEDULED AND PRN PAIN MEDICATION. PRN SLEEP AID GIVEN. DRESSING CDI, NO DRAINAGE NOTED. PT TOE TOUCH/25% WB TO LEFT EXTERMITY. PT ON REGULAR DIET, TOLERATING WELL, NO NAUSEA THIS SHIFT. NO IV ACCESS. PT USES CALL LIGHT APPROPERIATELY.
--- NOTE | 2018-06-26 08:00 | NUR ---
RECEIVED REPORT AT 0700, FOUND PT IN BED SLEEPING. NO CONCERNS AT THIS TIME.
--- NOTE | 2018-06-26 08:25 | NUR ---
MED REC COMPLETE
--- NOTE | 2018-06-26 08:37 | NUR ---
PATIENT UP TO CHAIR, 1 PA FWW. CALL LIGHT IN REACH. NO FURTHER NEEDS AT THIS TIME.
--- NOTE | 2018-06-26 10:00 | NUR ---
DURING THE AM ASSESSMENT, PT HAD SOME PAIN AND V/S WERE WDL. ADALAT WAS GIVEN ORDERED AT THAT TIME. ALL LOBES ARE CLEAR, DRESSING ON LLE IS C/D/I, PEDIS PULSES ARE +2, SOME EDEMA NOTED ON LEFT LEG. NO NEW CONCERNS WERE NOTED AT THAT TIME. AT ABOUT 0920, A RN NOTIFIED ME THAT PT WAS WORKING WITH PHYSICAL THERAPY AND HIS HR WAS 177 WHILE WALKING. PT WAS SAT IN THE PHYSICAL THERAPY ROOM AND EVEN AFTER 5 MINUTES HI HR REMAINED IN THE 130'S. BP WAS 107/60 (69). MD MORSE WAS CALLED AND AND ORDER FOR AN STAT EKG WAS GIVEN. THIS SHOWED SINUS TACHY. PER MD PENA A HOSPITALIST CONSULT WAS ORDERED. MD ROMAN WILL COME SEE HIM WHEN ABLE. PT NOW IS ALSO ON TELE #7 WITH A HR IN THE 100-110 AT THIS TIME. PT DENIES CHEST PAIN AND SOB. WILL CONTINUE TO MONITOR.
--- NOTE | 2018-06-26 10:09 | NUR ---
PATIENT IN BED WATCHING TV. FRESH WATER GIVEN. CALL LIGHT IN REACH. NO FURTHER NEEDS AT THIS TIME.
--- NOTE | 2018-06-26 12:05 | NUR ---
PT AT THIS TIME WANTED SOMETHING FOR PAIN 11/19. 10MG OXY WAS GIVEN. HR STILL 100-110. PT DENIES ANY SOB AND CHEST PAIN.
--- NOTE | 2018-06-26 14:06 | NUR ---
PT WAS SITTING IN BED, READING AND WATCHING TV. HE MENTIONED THAT HIS DAY WAS GOING GOOD UNTIL HIS HEART "ACTED UP" DURING P.T. ON TELE, DOING BETTER. GAVE PT A BLESSING, HE THANKED ME. WILL FOLLOW NEEDED
--- NOTE | 2018-06-26 14:27 | NUR ---
PATIENT IN BED WATCHING TV. FRESH WATER GIVEN. CALL LIGHT IN REACH. NO FURTHER NEEDS AT THIS TIME.
--- NOTE | 2018-06-26 14:54 | NUR ---
HR IS IN THE 115-125 AT THIS TIME. PT STATED THAT HIS PAIN IS 7/10. WILL GIVE ANOTHER 10MG OXY WHEN ABLE. OTHERWISE PT HAS NO COMPLAINTS AT THIS TIME.
--- NOTE | 2018-06-26 15:36 | NUR ---
FAXED CHART NOTES TO [facility] FOR A FWW FOR PT INCLUDING FACE SHEET, H AND P, PROG NOTES, PT JOSE ROBERTO CHUN NOTES. REQUESTING AFTER A COMMODE. EXPLAINED TO THE PT THAT MEDICARE WILL NOT PAY FOR A COMMODE.
--- NOTE | 2018-06-26 16:52 | EKG ---
[facility] [address] [place], [place] [address] Signed Sinus tachycardia Otherwise normal ECG When compared with ECG of 21-JUN-2018 10:55, ST now depressed in Anterior leads Confirmed by CHUY ROMAN DO ([id number]) on 06/26/2018 4:52:26 PM Electronically Signed By: CHUY ROMAN DO 06/26/18 1652 PATIENT NAME: YESIKA RODRIGUEZ Alec Electrocardiogram DATE OF : 47 PHYSICIAN: CHUY ROMAN DO REPORT #: [id number] REPORT IS CONFIDENTIAL AND NOT TO BE RELEASED WITHOUT AUTHORIZATION
--- NOTE | 2018-06-26 17:54 | NUR ---
PAIN OVERALL HAS BEEN WELL CONTROLLED WITH PRN OXY 10MG Q3-4 HRS. DRESSING ON LEFT LOWER LEG IS C/D/I, PICCO PUMP HAS GREEN LIGHT SHOWING. THERE IS SOME TRACE EDEMA PRESENT. PEDIS PULSES ARE +2. AT AROUND 0915 OR SO PT WAS WALKING WITH PHYS. THERAPY AND HIS HR WAS 177. AFTER SITTING FOR 5 MIN HR WAS STILL SUSTAINED IN THE 130'S. BP WAS WDL. MD MORSE WAS CALLED AND AN EKG ORDERED. ALSO A CONSULT FOR THE HOSPITALIST WAS ORDERED. PT THEN WAS PUT ON TELE #7 WHICH HAS SHOWN SINUS TACH ALL DAY SO FAR. PT STATUS HAS NOT CHANGED, PT APPEARS ASYMPTOMATIC IN REGARDS TO HIS HR. PT IS GETTING A LR BOLUS AT THIS TIME.
--- NOTE | 2018-06-26 18:26 | NUR ---
PATIENT IN BED WATCHING TV. FRESH WATER GIVEN. CALL LIGHT IN REACH. NO FURTHER NEEDS AT THIS TIME.
--- NOTE | 2018-06-26 19:12 | NUR ---
[facility] PT RESTING IN BED, EYES OPEN, RR WNL. PT REPORTS 7/10 PAIN, REQUESTING PAIN MEDICATION. PT OKAY TO WAIT UNTIL SHIFT REPORTS COMPLETED. IV FLUID BOLUS INFUSING, SITE WNL. PT ON TELE #7, SINUS TACHY, HR 100-102. PT DENIES FURTHER NEEDS. CALL LIGHT IN REACH.
--- NOTE | 2018-06-26 19:38 | NUR ---
PT REPORTS 7/10 PAIN, 10 MG PRN OXYCODONE ADMINISTERED. PT DENIES FURTHER NEEDS. CALL LIGHT IN REACH. IV FLUIDS BOLUS INFUSING, SITE WNL.
--- NOTE | 2018-06-26 21:05 | NUR ---
ASSESSMENT COMPLETE, SCHEDULED MEDICATIONS GIVEN (SEE EMAR). PT A/O TO PERSON, PARTIALLY TO PLACE, AND EVENTS. PT REPORTS 3/10 PAIN SINCE RECENT OXYCODONE ADMINISTRATION RECEIVED AT SHIFT CHANGE. DRESSING CDI, SCD'S, HEEL PROTECTORS, AND RIGHT JOHANNA HOSE NOTED. CMS INTACT. PT DENIES NUMBNESS AND TINGLING. IV FLUIDS BOLUS INFUSING, SITE WNL. CALL LIGHT IN REACH.
--- NOTE | 2018-06-27 00:45 | NUR ---
NOTIFIED BY NOEMI VASQUEZ OF PT'S PAIN. PT REPORTS 8/10 PAIN IN LEFT LOWER EXTREMITY. WHEN ASKED IF PT FEELS HE NEEDS THE 15 MG OXYCODONE, PT STATED, "JUST THE 2". 10 MG PRN OXYCODONE ADMINISTERED. SCD'S AND HEEL PROTECTORS IN PLACE. DRESSING REMAINS CDI. URINAL EMPTIED, CALL LIGHT IN REACH. PT ON RA, O2 SAT 97%, HR 88.
--- NOTE | 2018-06-27 03:13 | NUR ---
PT RESTING COMFORTABLY IN BED, NO FACIAL GRIMACES OR RESPIRATORY DISTRESS NOTED. CALL LIGHT IN REACH.
--- NOTE | 2018-06-27 05:45 | NUR ---
PARTIAL VS RECORDED ALONG WITH I&O'S. URINAL EMPTIED. PT DENIES FURTHER NEEDS, CALL LIGHT IN REACH.
--- NOTE | 2018-06-27 06:25 | NUR ---
DR MORSE CALLED ASKING FOR PT UPDATE. UPDATE PROVIDED REGARDING PT'S PAIN CONTROL, VS, AND DRESSING APPEARANCE. ALL QUESTIONS ANSWERED.
--- NOTE | 2018-06-27 06:34 | NUR ---
PT HAD A GOOD NIGHT. PT SLEPT FOR MOST OF THE SHIFT. PAIN WELL CONTROLLED WITH SCHEDULED AND PRN PAIN MEDICATIONS. 6.25 MG LOPRESSOR STARTED ON THIS SHIFT AT 2100 FOR EARLIER TACHYCARDIA DURING DAYSHIFT. HR WNL SINCE. NO COMPLAINTS OF SOB DURING THIS SHIFT. DRESSING IS CDI, CMS INTACT. PT TOE TOUCH, 25% WEIGHT BEARING TO LLE. PT ON REGULAR DIET, NO NAUSEA, BOWEL TONES ACTIVE.
--- NOTE | 2018-06-27 07:25 | NUR ---
THIS RN TO FLUSH PT'S IV SITE BEFORE COMPLETED SHIFT. PT SL AT THIS TIME. IV PATENT, BUT MINIMAL LEAKING POSSIBLY NOTED. NO SCHEDULED MAINTENANCE FLUIDS ORDERED, PT IS SCHEDULED TO REMIAN SL. CHANDNI SNEED MADE AWARE.
--- NOTE | 2018-06-27 08:00 | NUR ---
RECEIVED REPORT AT 0700, FOUND PT IN BED SLEEPING. NO NEW CONCERNS AT THIS TIME.
--- NOTE | 2018-06-27 09:14 | NUR ---
PATIENT USING BATHROOM. LINENS CHANGED. PATIENT BACKS TO CHAIR USING A WALKER. ONE PERSON ASSISTING. VITAL SIGNS AND I&O DONE. CALL LIGHT WITHIN REACH. NO OTHER NEEDS AT THIS TIME
--- NOTE | 2018-06-27 10:00 | NUR ---
HR ELEVATED AT 125. PT JUST RECEIVED HIS BETA-HESHAM ABOUT 20 MIN EARLIER. WILL CONTINUE TO MONITOR. PT IS DOING WELL. ALL LOBES ARE CLEAR, LEFT LOWER LEG DRESSING IS C/D/I, TRACE EDEMA PRESENT, PEDIS PULSES +2, PAIN IS WELL CONTROLLED. NO NEW CONCERNS NOTED SO FAR.
--- NOTE | 2018-06-27 11:10 | NUR ---
SPOKE WITH PATIENT IN ROOM. DELIVERED NEWSPAPER. PATIENT IS IN CHAIR AND STATES HE WILL LOOK FORWARD TO LOOKING AT IT. PATIENT STATES HE IS TIRED FROM THERAPY BUT DOING "BETTER". NO QUESTIONS AT THIS TIME.
--- NOTE | 2018-06-27 12:00 | NUR ---
NO NEW CONCERNS NOTED AT THIS TIME. PT IN ROOM WATCHING TV.
--- NOTE | 2018-06-27 12:35 | NUR ---
PT UP WITH P.T. AMBULATING IN [place]. GAVE ENCOURAGEMENT, WILL FOLLOW NEEDED
--- NOTE | 2018-06-27 13:17 | NUR ---
PATIENT SITTING UP IN CHAIR WATCHING TV. ICE WATER GIVEN. I&O DONE. CALL LIGHT WITHIN REACH. NO OTHER NEEDS AT THIS TIME
--- NOTE | 2018-06-27 14:46 | NUR ---
PT WORKED WITH PHYS. THERAPY AGAIN. NO NEW CONCERNS NOTED.
--- NOTE | 2018-06-27 17:52 | NUR ---
PT DID WELL ALL DAY. PT WORKED WITH PHYS. THERAPY. PAIN IS STILL WELL CONTOLLED, DRESSING IS C/D/I, PEDIS PULSES ARE +2. HR HAS BEEN 100 OR LESS ALL SHIFT SO FAR. V/S ARE WDL. WILL UPDATE MD MORSE BEFORE SHIFT ENDS. PT ALSO HAD SEVERAL BM'S TODAY AND THEREFORE LAXATIVES WILL BE HELD TONIGHT. NO OTHER CONCERNS NOTED SO FAR THIS SHIFT.
--- NOTE | 2018-06-27 18:04 | NUR ---
CALLED MD MORSE FOR AN UPDATE ABOUT THIS PT. I RECEIVED AN ORDER FOR A PE RULE-OUT CT WITH CONTRAST . CREAT. LABS WILL HAVE TO BE ORDERED FIRST AND A 20G IV SITE HAS TO BE ESTABLISHED WELL.
--- NOTE | 2018-06-27 18:12 | NUR ---
PATIENT SITTING UP IN CHAIR. I&O DONE. CALL LIGHT WITHIN REACH. NO OTHER NEEDS AT THIS TIME
--- NOTE | 2018-06-27 19:45 | NUR ---
BACK FROM CT SCAN, TOLERATED WELL, UP IN CHAIR. DRESSING L LEG INTACT, GOOD CMS, USED 1 PA AND FWW
--- NOTE | 2018-06-27 20:17 | NUR ---
BACK TO BED FROM CHAIR. COOPERATIVE, TOLERATED WELL. MINIMUM OF ASSIST WITH 1PA AND FWW, FRANCI WRAP L LEG INTACT, MANDI DRESSING WITH GREEN LIGHT FLASHING. JOHANNA LAM, SCDS AND HEEL PROTECTORS ON
--- NOTE | 2018-06-27 20:32 | NUR ---
JOHANNA LAM IN PLACE SCD ON AND WORKING. MANDI DRESSING ON CDI GREE AMOLT BLINKING. PT AOX3. STADED DOES NOT NEED SENNOKOT D/T 2 BM TODAY. LUNGS SOUNDS CLEAR, HEART R&R WNL.
--- NOTE | 2018-06-27 22:01 | NUR ---
RECORDS ANALYSIS MANAGER ROUNDING NOTE. PT RESTING IN BED WITH EYES CLOSED. PT DOES NOT WAKE WHILE QUANTITATIVE ANALYST DEVELOPER IN ROOM. CALL LIGHT IN REACH.
--- NOTE | 2018-06-27 23:04 | NUR ---
pt resting in bed. brunilda dressing c/d/i green ligth flashing. no signs of distress. no c/o pain at this time. call light in reach
--- NOTE | 2018-06-28 04:36 | NUR ---
PT RESTED WELL DURRING SHIFT. PAIN WELL CONTROLLED WITH DILUADID, PT ABLE TO COMMUNICATE NEEDS. MANDI DRESSING TO LEFT LOWER LEG C/D/I GREEN LIGHT FLASHING. VS WNL. UO QS. PT AT 25% WEIGHT BERING WITH WALKER ANS 1PA. CT RESULTS NO ACUTE PULMONARY EMBOLI. AOX3.
--- NOTE | 2018-06-28 08:00 | NUR ---
RECEIVED REPORT AT 0700, FOUND PT IN BED AWAKE. PAIN WAS 7/10. OTHERWISE PT HAD NO OTHER CONCERNS AT THAT TIME.
--- NOTE | 2018-06-28 10:00 | NUR ---
PAIN IS 3/10, PICCO DRESSING IS D/I, TITO ARE INTACT AND INCISION IS HEALING WELL. TRACE EDEMA PRESENT ON LEFT LOWER LEG. PEDIS PULSES +2, ALL LOBES ARE CLEAR, HR IS <100 SO FAR THIS SHIFT. ALL OTHER V/S ARE WDL, URINE OUTPUT IS ADEQUATE. NO NEW CONCERNS NOTED AT THIS TIME.
[2018-06-28] MEDS ORDERED: NICODERM CQ1 EAC1 TD (10:49)
[2018-06-28] MEDS ORDERED: METOPROLOL TART25 MG PO (10:49)
--- NOTE | 2018-06-28 12:31 | NUR ---
PT WAS CLEARED BY PHYSICAL THERAPY. PAIN IS WELL CONTROLLED IT SEEMS AND NO NEW ISSUES HAVE BEEN NOTED.
[2018-06-28] MEDS ORDERED: OXYCODONE HCL5 MG PO (13:22)
[2018-06-28] MEDS ORDERED: GABAPENTIN300 MG PO (13:23)
[2018-06-28] MEDS ORDERED: SENNA LAX8.6 MG PO (13:23)
[2018-06-28] MEDS ORDERED: TYLENOL EXTRA500 MG PO (13:23)
[2018-06-28] MEDS ORDERED: HEALTHYLAX17 GM PO (13:23)
[2018-06-28] MEDS ORDERED: MELATONIN1 MG PO (13:24)
[2018-06-28] MEDS ORDERED: XARELTO10 MG PO (13:26)
--- NOTE | 2018-06-28 14:30 | NUR ---
D/C IS COMPLETE. PT IS WAITING FOR TO ARRIVE.
--- NOTE | 2018-06-30 08:20 | DS ---
[facility] [address] [place], [place] [address] Signed ADMISSION DATE: 06/25/2018 DISCHARGE DATE: 06/28/2018 ADMISSION DIAGNOSIS: Left tibial fracture open status post I and D, and ORIF. DISCHARGE DIAGNOSIS: Left tibial fracture open status post I and D, and ORIF. PROCEDURE PERFORMED: None. BRIEF HISTORY: Vignesh is a 72-year-old gentleman who had a tibial plateau fracture who subsequently underwent repeat washout and ORIF. He did well, but needed more therapy and was admitted to swing bed. He feels like he is ready to go home with physical therapy concurs. We will discharge him to home. Continued outpatient physical therapy and oxycodone for pain control. He will follow up with me in 10 to 14 days. Should any problems in the interim, he will notify me immediately. I will also discharge him with Xarelto 10 mg p.o. daily for DVT prophylaxis. Avtar Gallego MD BA/NANCYL /[phone] Copies: ~ Portions of this report were created using voice recognition software. There may be inadvertent computer error. Please read with context in mind. If there are any questions, please contact me. Electronically Signed By: AVTAR GALLEGO MD 06/30/18 0820 PATIENT NAME: VIGNESH RODRIGUEZ DISCHARGE SUMMARY DATE OF : 47 REPORT #: [id number] PHYSICIAN: AVTAR GALLEGO MD PCP: ANABELA SCOTT NP REPORT IS CONFIDENTIAL AND NOT TO BE RELEASED WITHOUT AUTHORIZATION
== END 2018-06-28 13:20 | disposition home or self-care (01) | DRG 561 ==
LOC: MS 11:00
PROVIDERS: ADMIT Specialist
DX: S82.142 Displaced bicondylar fracture of left tibia (principal); W18.30XD Fall on same level, unspecified, subsequent encounter; Y92.007 Garden or yard of unspecified non-institutional (private) residence as the place of occurrence of the external cause; I10 Essential (primary) hypertension; E78.5 Hyperlipidemia, unspecified; F17.200 Nicotine dependence, unspecified, uncomplicated; E86.9 Volume depletion, unspecified; R00.0 Tachycardia, unspecified; R91.8 Other nonspecific abnormal finding of lung field; Z79.891 Long term (current) use of opiate analgesic; Z79.899 Other long term (current) drug therapy
CPT/HCPCS: 36415; 71260; 80048; 83735; 93005; 93010; 97110; 97116; 97530; J0690; J7120; Q9967

== ENCOUNTER 2018-09-02 14:10 | Inpatient (IN) | payer MEDICARE, OTHER ==
[~2018-09-02] VITALS: Ht 177.8 cm; Wt 83.9 kg
--- OUTSIDE RECORDS SUMMARY | ~2018-09-02 | XMS | Clinical Summary ---
Demographics + + + | Address | [address] | | | [place] [address] | + + + | Home Phone | | + + + | Preferred Language | Unknown | + + + | Marital Status | Unknown | + + + | Oriental Orthodox Affiliation | Unknown | + + + | Race | Unknown | + + + | Ethnic Group | Unknown | + + + Author + + + | Author | [facility] | | | and Jose Alejandroana | + + + | Organization | [facility] | | | and Jose Alejandroana | + + + | Address | Unknown | + + + | Phone | Unavailable | + + + Care Team Providers + +------+ + | Care Market Risk Analyst Name | Role | Phone | + +------+ + PP | Unavailable | + +------+ + Allergies Not on File Medications Not on file Active Problems Not on file Social History + +-------+ +--------+------+ | Tobacco Use | Types | Packs/Day | Years | Date | | | | | Used | | + +-------+ +--------+------+ | Never Assessed | | | | | + +-------+ +--------+------+ + + + | Sex Assigned at | Date Recorded | | | | + + + | Not on file | | + + + + + + + | Job Start Date | Occupation | Industry | + + + + | Not on file | Not on file | Not on file | + + + + + + + + | Travel History | Travel Start | Travel End | + + + + + + | No recent travel history available. | + + Plan of Treatment + + + + + | Health Maintenance | Due Date | Last Done | Comments | + + + + + | Vaccine: | | | | | Dtap/Tdap/Td (1 - | 6 | | | | Tdap) | | | | + + + + + | Vaccine: Zoster (1 | | | | | of 2) | 7 | | | + + + + + | Vaccine: | | | | | Pneumococcal 65+ | 2 | | | | Low/Medium Risk (1 | | | | | of 2 - PCV13) | | | | + + + + + | Vaccine: Influenza | | | | | (Season Ended) | 9 | | | + + + + + Results Not on filefrom Last 3 Months"
--- OUTSIDE RECORDS SUMMARY | ~2018-09-02 | XMS | Clinical Summary ---
Demographics + + + | Address | [address] | | | [place] [address] | + + + | Home Phone | | + + + | Preferred Language | Unknown | + + + | Marital Status | Unknown | + + + | Rastafarian Affiliation | Unknown | + + + | Race | Unknown | + + + | Ethnic Group | Unknown | + + + Author + + + | Author | [facility] | | | and Jose Alejandroana | + + + | Organization | [facility] | | | and Jose Alejandroana | + + + | Address | Unknown | + + + | Phone | Unavailable | + + + Care Team Providers + +------+ + | Care Making Machine Catcher Name | Role | Phone | + [...]
--- OUTSIDE RECORDS SUMMARY | ~2018-09-02 | XMS | Clinical Summary ---
Demographics + + + | Address | [address] | | | [place] [address] | + + + | Home Phone | | + + + | Preferred Language | Unknown | + + + | Marital Status | Unknown | + + + | Jew Affiliation | Unknown | + + + | Race | Unknown | + + + | Ethnic Group | Unknown | + + + Author + + + | Author | [facility] | | | and Jose Alejandroana | + + + | Organization | [facility] | | | and Jose Alejandroana | + + + | Address | Unknown | + + + | Phone | Unavailable | + + + Care Team Providers + +------+ + | Care Loan Coordinator Name | Role | Phone | + [...]
[~2018-09-02 14:10] MED LIST changes: +GABAPENTIN300 MG PO; +HEALTHYLAX17 GM PO; +MELATONIN1 MG PO; +METOPROLOL TART25 MG PO; +NICODERM CQ1 EAC1 TD; +OXYCODONE HCL5 MG PO; +SENNA LAX8.6 MG PO; +TYLENOL EXTRA500 MG PO; +XARELTO10 MG PO
--- OUTSIDE RECORDS SUMMARY | 2018-09-02 14:12 | XMS ---
PreManage Notification: YESIKA RODRIGUEZ Security Career Services Officer Events No recent Security Events currently on file CRITERIA MET - PDMP CARE PROVIDERS ANABELA SCOTT Nurse Practitioner: 06/23/2018-Current PHONE: [phone] Tyesha has no Care Guidelines for this patient. EDavid VISIT COUNT (12 MO.) 2 [facility] TOTAL 2 NOTE: Visits indicate total known visits. 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 - Essential (primary) hypertension - Fall on same level, unspecified, subsequent encounter - rodent exterminator (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) use of opiate analgesic - Garden or yard of unspecified non-institutional (private) residence as the place of occurrence of the external cause - Fall on same level, unspecified, subsequent encounter - Hyperlipidemia, unspecified - Displaced bicondylar fracture of left tibia, subsequent encounter for open fracture type I or II with routine healing - Garden or yard of unspecified non-institutional (private) residence as the place of occurrence of the external cause - Nicotine dependence, unspecified, uncomplicated - Volume depletion, unspecified - Nicotine dependence, unspecified, uncomplicated - Tachycardia, unspecified - Essential (primary) hypertension - Volume depletion, unspecified - Other termination clerk (current) drug therapy - Hyperlipidemia, unspecified - Other termination clerk (current) drug therapy 06/21/2018 11:[address] 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 - Other disorders of lung - Fall on same level due to ice and snow, initial encounter - Pain in left shoulder - Garden or yard of unspecified non-institutional (private) residence as the place of occurrence of the external cause - Pain in left shoulder - Displaced bicondylar fracture of left tibia, initial encounter for open fracture type I or II - Essential (primary) hypertension - Other disorders of lung - Other senior living (current) drug therapy - Pain in left elbow - Other senior living (current) drug therapy - Nicotine dependence, cigarettes, uncomplicated - Pain in left elbow - Nicotine dependence, cigarettes, uncomplicated - Garden or yard of unspecified non-institutional (private) residence as the place of occurrence of the external cause - Pure hypercholesterolemia, unspecified - Fall on same level due to ice and snow, initial encounter - Other acute postprocedural pain - Essential (primary) hypertension - Other acute postprocedural pain [email or web address]
[2018-09-02] MEDS ORDERED: NORCO 7.5-3251 EACH PO (14:26)
--- NOTE | 2018-09-02 17:28 | NUR ---
PT TO FLOOR VIA STRETCHER WITH DIRECTOR OF ACCOUNTS PAYABLE. PT MOVED TO BED WITH STAFF AND SLIDER SHEET. PT TOLERATED WELL. RATES PAIN 10. ADMINISTERED DILAUDID IN ED. FAMILY WITH PT. PEDAL PULSES FELT.
--- NOTE | 2018-09-02 18:29 | NUR ---
LR BOLUS ORDERED. GIVEN ORDERED. PT RESTING IN BED. CONTINUES TO REPORTS 7/10 PAIN. TEMPERATURE IN ROOM INCREASED FOR PT. BED RAILS UP. CALL LIGHT WITHIN REACH. FAMILY AT BEDSIDE.
--- NOTE | 2018-09-02 19:35 | NUR ---
RECEIVED REPORT ON PT, KIRBY FRANKLIN IS GETTING THE PT PAIN MEDS AT THIS TIME.
--- NOTE | 2018-09-02 19:49 | NUR ---
ROUNDED INTERNET SYSTEMS ADMINISTRATOR, PT RESTING IN BED, C/O 8-9/10 PAIN IN LEFT HIP, PT STATES "I CAN'T THINK OF ANYTHING ELSE BUT PAIN". PO AND IV PAIN MEDICATION ADMINISTERED WITH CRACKERS. PT HAS CALL LIGHT AND PO FLUIDS IN REACH. IVF BOLUS INFUSING ORDERED. MD PHONED, TO PLACE IV PAIN MEDICATION ORDER WHEN PT NPO AT MIDNIGHT. FAMILY IN ROOM, QUESTIONS ANSWERED.
--- NOTE | 2018-09-02 20:55 | NUR ---
IN ROOM TO ASSESS PT. HE REPORTS PAIN HAS IMPROVED AFTER HAVING THE OXYCODONE AND TORADOL. CMS IS INTACT AND LEFT FOOT IS WARM. NO BRUISING NOTED FROM LATERAL VIEW OF HIS LEFT HIP. PT DENIES NEEDS AT THIS TIME. CALL LIGHT IS CLOSE.
--- NOTE | 2018-09-02 23:41 | NUR ---
PT IS RESTING WITH EYES CLOSED, RESPIRATIONS ARE EVEN AND NONLABORED. CALL LIGHT IS WITHIN REACH.
--- NOTE | 2018-09-03 00:54 | NUR ---
PT IS RESTING WITH EYES CLOSED, RESPIRATIONS ARE EVEN AND NONLABORED. CALL LIGHT IS WITHIN REACH.
--- NOTE | 2018-09-03 02:05 | NUR ---
ADMINISTERED IV MORPHINE FOR 8/10 PAIN. IV IS INFUSING FINE AND OFFERED TO REPOSITION PT. HE STATES HE WILL MOVE A LITTLE AFTER THE PAIN MEDICINE KICKS IN. NO BRUISING TO THE LEFT HIP IS NOTED AND CMS IS INTACT. PT DENIES FURTHER NEEDS AT THIS TIME. CALL LIGHT IS WITHIN REACH.
--- NOTE | 2018-09-03 03:08 | NUR ---
PT IS RESTING WITH EYES CLOSED, RESPIRATIONS ARE EVEN AND NONLABORED. CALL LIGHT IS WITHIN REACH.
--- NOTE | 2018-09-03 04:05 | NUR ---
PT IS RESTING WITH EYES CLOSED, RESPIRATIONS ARE EVEN AND NONLABORED. CALL LIGHT IS WITHIN REACH.
--- NOTE | 2018-09-03 05:09 | NUR ---
PT SLEPT MOST OF THE NIGHT, HIS PAIN WAS CONTROLLED WITH OXYCODONE BEFORE MIDNIGHT THEN WITH MORPHINE 8MG AFTER. PT HAS BEEN NPO SINCE MIDNIGHT. HE HAS D5LR INFUSING AT 125. PT IS BEDBOUND AT THIS TIME AND IS USING THE URINAL IN BED. HIS SKIN IS INTACT AND NO BRUISING IS NOTED TO LEFT HIP YET. FAMILY WOULD LIKE A CALL WHEN WE KNOW WHAT TIME SURGERY IS.
--- NOTE | 2018-09-03 06:00 | NUR ---
CALL LIGHT ANSWERED. PRN PAIN MEDICATIONS ADMINISTERED FOR "SHARP" 7-8/10 PAIN IN LEFT HIP. IVF INFUSING WNL. PT DENIES TOILETING NEEDS. FISH ATWOOD IN ROOM TO PREP PT FOR SURGERY.
--- NOTE | 2018-09-03 06:05 | NUR ---
NOTIFIED DAUGHTER AME ABOUT PENDING SURGERY TIME OF 0630 TODAY. SHE WILL LET HER MOTHER KNOW.
--- NOTE | 2018-09-03 06:43 | NUR ---
pre op wipes done.
--- NOTE | 2018-09-03 06:54 | NUR ---
PT REPORTS PAIN AT A 3 OR 4 AT THIS TIME. HE DENIES FURTHER NEEDS. CALL LIGHT IS WITHIN REACH.
--- NOTE | 2018-09-03 07:00 | NUR ---
Report received from NOEMI Almeida. Pt remains off of floor at this time.
--- NOTE | 2018-09-03 09:37 | NUR ---
09/03/18 0937 Sheets,Ingrid 0957 PT ARRIVED TO PACU ON 6L VIA MASK, PERIODS OF APNEA NOTED. PT WOKE TO TACTILE STIMULI AND DEEP BREATHES. 933 02 SIRI REMOVED, PT MORE AWAKE AND IS REORINETED TO PACU. PT DENIES PAIN AND REPORTS "I AM UNABLE TO MOVE MY LEGS." SPINAL EDUCATION GIVEN, SPINAL AT L-1. PT DRWOSY AND ASLEEP OFF AND ON WITH SNORING NOTED. HOB OF BED INCREASED SMALL AMOUNT.
--- NOTE | 2018-09-03 09:58 | NUR ---
Pt remains off of medsur floor at this time.
--- NOTE | 2018-09-03 10:10 | NUR ---
PT BACK TO ROOM FORM PACU, REPORT RECEIVED FROM NOEMI SOTO. PT DENIES PAIN, BLOCK STILL EFFECTIVE. DSG CDI TO LEFT HIP. ASSESSMENT COMPLETED. CALL LIGHT IN REACH. PT DENIES NEEDS/CONCERNS AT THIS TIME. ICE TO LEFT HIP.
--- NOTE | 2018-09-03 12:22 | EKG ---
[facility] [address] [place] [address] Signed Normal sinus rhythm Normal ECG When compared with ECG of 26-JUN-2018 09:28, No significant change was found Confirmed by WESLEY MCELROY MD ([id number]) on 09/03/2018 12:22:41 PM Electronically Signed By: WESLEY MCELROY MD 09/03/18 1222 PATIENT NAME: YESIKA RODRIGUEZ Electrocardiogram DATE OF : 47 PHYSICIAN: WESLEY MCELROY MD REPORT #: [id number] REPORT IS CONFIDENTIAL AND NOT TO BE RELEASED WITHOUT AUTHORIZATION
--- NOTE | 2018-09-03 13:18 | NUR ---
pt resting with hob elevated. pt alert and oriented, watching tv. Pt states he is comfortable. VSS. Pt denies nausea, sob or pain to surgical site.Cap refill <2 to lle. Call light and h2o in reach. no needs/concerns voiced. ice applied to left hip. scd's remain in place.
--- NOTE | 2018-09-03 13:28 | NUR ---
Medications reconciled with patient interview
--- NOTE | 2018-09-03 14:18 | NUR ---
PT STATES HIS LEFT HIP PAIN LEVEL IS A 5/10 AND HE WAS MEDICATED ORDERED, SEE EMAR. LEFT HIP DRESSING REMAINS CDI AND ICE IS INPLACE WELL ABDUCTION SPLINT.
--- NOTE | 2018-09-03 19:08 | NUR ---
IN ROOM FOR REPORT, PT DENIES NEEDS AT THIS TIME. CALL LIGHT IS WITHIN REACH.
--- NOTE | 2018-09-03 20:40 | NUR ---
IN ROOM TO ADMINISTER MEDICATIONS AND ASSESS PT. HE REPORTS PAIN ABOUT 3 OR 4 AT THIS TIME. ADMINISTERED SCHEDULED PAIN MEDS AND ASKED PT TO CALL IF PAIN DOES NOT IMPROVE. LEFT HIP DRESSING IS CDI AND NO BRUISING IS NOTED. FRESH ICE IS IN PLACE WELL SCDS AND ABD WEDGE. PT IS DOING GOOD ON ROOM AIR. HE DENIES NAUSEA AND IS TOLERATING PO INTAKE. PT DENIES NEEDS AT THIS TIME, CALL LIGHT IS WITHIN REACH. IV IS INFUSING FINE.
--- NOTE | 2018-09-03 22:30 | NUR ---
PT REPORTS PAIN 6/10 ADMINISTER MORPHINE AND ABX. PT DENIES FURTHER NEEDS AT THIS TIME. CALL LIGHT IS WITHIN REACH.
--- NOTE | 2018-09-03 23:25 | NUR ---
PT IS RESTING WITH EYES CLOSED, RESPIRATIONS ARE EVEN AND NONLABORED. CALL LIGHT IS WITHIN REACH.
--- NOTE | 2018-09-04 01:18 | NUR ---
PT IS RESTING WITH EYES CLOSED RESPIRATIONS ARE EVEN AND NONLABORED. CALL LIGHT IS WITHIN REACH.
--- NOTE | 2018-09-04 01:39 | NUR ---
VITALS AND I&OS DONE AND CHARTED. EMPTIED PT'S URINAL. FRESH ICE WATER GIVEN. BEDSIDE TABLE AND CALL LIGHT IN REACH. PT NEEDS NOTHING MORE AT THIS TIME.
--- NOTE | 2018-09-04 02:00 | NUR ---
PT REPORTS PAIN AT 6/10, SCHEDULED AND PRN PAIN MEDS GIVEN. HIS DRESSING IS CDI AND HE DENIES NUMBNESS AND TINGLING. HE HAS ICE TO HIS HIP, ABD WEDGE AND SCDS. PT DENIES NEEDS AT THIS TIME. CALL LIGHT IS WITHIN REACH.
--- NOTE | 2018-09-04 03:17 | NUR ---
PT IS RESTING WITH EYES CLOSED, RESPIRATIONS ARE EVEN AND NONLABORED. CALL LIGHT IS WITHIN REACH.
--- NOTE | 2018-09-04 05:59 | NUR ---
VITALS AND I&OS DONE AND CHARTED. EMPTIED URINAL. EMPTIED GARBAGES. BEDSIDE TABLE AND CALL LIGHT IN REACH.
--- NOTE | 2018-09-04 06:45 | NUR ---
IN ROOM TO ADMINISTER MEDICATIONS. PT REPORTS PAIN 7 OR 8 AT THIS TIME. IV MORPHINE ADMINISTERED. PT DENIES FURTHER NEEDS. CALL LIGHT IS WITHIN REACH.
--- NOTE | 2018-09-04 07:22 | HP ---
[facility] [address] [place], [place] [address] Signed ADMISSION DATE: 09/02/2018 HISTORY OF PRESENT ILLNESS: Mr. Rodriguez is a 72-year-old, male, who was doing fine until yesterday afternoon. He recently had a tibial plateau fracture on the left that was treated surgically by Dr. Gallego. He did well with the surgery, but in talking to him today it is a little unclear with the weightbearing status was on that leg. Be that as it may, he also described a perhaps by brief syncopal episode and indicates that he had a ground level fall. He said after the ground level fall. He was unable to bear weight on his left leg and indeed he was unable to move it at all. He was brought to the emergency room where imaging showed a displaced subcapital fracture of the left hip. He was admitted to the Orthopedic Service. PAST MEDICAL HISTORY: Noted in the hospitalist leasing consultant report. CURRENT MEDICATIONS: Noted in Dr. Jackman's note. ALLERGIES: He says he has no allergies. He indicates that he is not allergic to any medications of which he is aware. SOCIAL HISTORY: He said he recently stopped smoking and uses a skin patch. PHYSICAL EXAMINATION: GENERAL: He is pleasant although moderately hard of hearing. [place] male in no acute distress. Lying comfortably in bed. There is no evidence of craniofacial trauma. His neck is supple. The chest is clear cardiac exam reveals a regular rhythm. The abdomen is soft and nontender. The left leg is tender to palpation in the groin. There is no real shortening nor is there any external rotation. He is unable to move it voluntarily. He does have flexion and extension of his ankles and toes and says he appreciates light touch well in the tips of all of his feet. Pedal pulses are bilaterally symmetrically diminished. His x-rays and x-ray reports were reviewed. He was complaining of some left shoulder discomfort. Apparently in the emergency room, he says that has by and large resolved at this time. X-rays of the left humerus were unremarkable. X-rays of the pelvis and left femur showed a displaced transcervical fracture. Electronically Signed By: RANDAL WRIGHT MD 09/04/18 0722 PATIENT NAME: YESIKA RODRIGEUZ HISTORY AND PHYSICAL DATE OF : 47 REPORT #: [id number] PHYSICIAN: RANDAL WRIGHT MD PCP: ETHAN JENSEN REPORT IS CONFIDENTIAL AND NOT TO BE RELEASED WITHOUT AUTHORIZATION [address] [address] Signed I discussed with Mr. Rodriguez the nature of this injury and our general recommendation for endoprosthetic replacement. We have specifically outlined all the potential risks of bleeding, infection, nerve and vascular damage, along with the potential fracture of the femur during insertion or reduction. We have outlined the other treatment alternatives including closed reduction and percutaneous pinning, treatment, and bed rest. After discussing all the potential risks and complications, he was comfortable with proceeding with endoprosthetic replacement. MD RENE CraigB/NANCYL /[id number] Copies: ~ Electronically Signed By: RANDAL WRIGHT MD 09/04/18 0722 PATIENT NAME: YESIKA RODRIGUEZ HISTORY AND PHYSICAL DATE OF : 47 REPORT #: [id number] PHYSICIAN: RANDAL WRIGHT MD PCP: ETHAN JENSEN REPORT IS CONFIDENTIAL AND NOT TO BE RELEASED WITHOUT AUTHORIZATION
--- NOTE | 2018-09-04 07:22 | OR ---
[facility] [address] [place], [place] [address] Signed DATE OF OPERATION: 09/02/2018 SURGEON: Edward Arauz MD PREOPERATIVE DIAGNOSIS: Displaced femoral neck fracture, left. POSTOPERATIVE DIAGNOSIS: Displaced femoral neck fracture, left. PROCEDURE: Left hip bipolar replacement. ANESTHESIA: Spinal with sedation. SPECIMENS AND COMPLICATIONS: There were none. BLOOD LOSS: About 800 mL. WHAT WAS DONE: The patient was taken to the operating room. After anesthesia was induced and the patient sedated, he was placed in the right lateral decubitus position and the left hip area was prepped and draped in the routine sterile fashion. A slightly curvilinear anterolateral incision was made through skin and subcutaneous tissue. Hemostasis was achieved with electrocautery and a self-retaining retractor was placed. We then divided the iliotibial band in a vertical fashion and deep into the retractor. We then elevated about a 3rd of the gluteus medius off the anterior aspect of the greater trochanter and allowed it to retract medially. We then did an anterior capsulectomy and removed the entire anterior half of the capsule. We rotated the femur up into the wound and used an oscillating saw to perform a femoral neck osteotomy. The napkin ring fragment was removed. We then used a skid and corkscrew technique to remove the femoral head, which measured 49 mm. We then trialed a 49 mm trial in the acetabulum and we are happy with the alignment, position, and fill. We then rotated the femur up into the incision again and used the box osteotome, a canal finder, a lateralizer, and then a series of broaches. We gradually broached up to a size #8 of press-fit. We then trialed the hip with a standard 30 neck a +0 inner bearing, and a 49 mm outer bearing. We had good leg length, good alignment, good position, and excellent stability. We then dislocated the Electronically Signed By: EDWARD ARAUZ MD 09/04/18 0722 PATIENT NAME: YESIKA RODRIGUEZ OPERATIVE REPORT DATE OF : 47 REPORT #: [id number] PHYSICIAN: EDWARD ARAUZ MD PCP: ETHAN JENSEN REPORT IS CONFIDENTIAL AND NOT TO BE RELEASED WITHOUT AUTHORIZATION [facility] [address] [place] [id number] Signed hip again and removed all the trials. We then impacted the real size #8 femoral component, and again placed a +0 28 mm inner bearing and then a 49 mm outer bearing. We again re-located the hip and again we were happy with the alignment, the position, and the stability. The wound was copiously irrigated. The hip was injected with 97 mL of joint solution and routine wound closure was accomplished. A sterile dressing was applied and the patient was awakened, taken to the recovery room, and arrived in stable condition. Counts were correct and antibiotic protocols were followed. MD RENE CraigB/MODL /[id number] Copies: ~ Electronically Signed By: EDWARD ARAUZ MD 09/04/18 0722 PATIENT NAME: YESIKA RODRIGUEZ OPERATIVE REPORT DATE OF : 47 REPORT #: [id number] PHYSICIAN: EDWARD ARAUZ MD PCP: ETHAN JENSEN REPORT IS CONFIDENTIAL AND NOT TO BE RELEASED WITHOUT AUTHORIZATION
--- NOTE | 2018-09-04 08:10 | NUR ---
PATIENT SITTING UP IN BED. RN STUDENT IN ROOM. CALL LIGHT WITHIN REACH. NO OTHER NEEDS AT THIS TIME
--- NOTE | 2018-09-04 09:20 | NUR ---
PT RESTING IN BED WITH HOB ELEVATED PT ASSISTED UP TO BATHROOM PER HIS REQUEST AND BACK TO BED USING FWW WITH LIGHT FOOT TOUGH ONLY TO LLE. ASSESSMENT COMPLETED. H2O AND CALL LIGHT IN REACH. PT DENIES PAIN, NAUSEA OR HAVING ANY FURHTER NEEDS/CONCERNS.
--- NOTE | 2018-09-04 09:45 | NUR ---
IN TO SPEAK WITH PT AND DO INITIAL CASE MANAGEMENT ASSESSMENT. PT DENIES ANY NEEDS FOR AT HOME. STATES HE ALREADY HAS A WALKER AND IS WORKING WITH [facility].
--- NOTE | 2018-09-04 11:47 | NUR ---
FAXED CHART NOTES TO [facility] RN. RECIEVED FAX CONFIRMATION.
--- NOTE | 2018-09-04 13:49 | NUR ---
Pt assisted up to restroom pt has unmeasured void and small formed stool. Pt expresses readiness to go home today. Pt states he feels comfortable on his feet and ambulates with sba and fww with light foot touch only. assessment completed. Pt a/o x4 pt reports elevated 7/10 pain with ambulation pt requested and received scheduled tylenol and iv toradol at this time. Fresh ice applied to left hip and fresh ice water also provided and in reach.
--- NOTE | 2018-09-04 14:03 | NUR ---
PATIENT ADMITTED AT HIGH RISK FOR MALNUTRITION BECAUSE OF DECREASED APPETITE. HE IS ON A REGULAR DIET AND EATING 100% OF MEALS SO FAR. MEALS AREN'T LARGE. NO NUTRITION INTERVENTION AT THIS TIME. CONTINUE REGULAR DIET. WILL CONTINUE TO MONITOR.
--- NOTE | 2018-09-04 14:55 | NUR ---
PT RATING PAIN 6-7/10, REQUESTING ADDITIONAL PAIN MEDICATION. PT GIVEN 5 MG OXYCODONE, EDUCATED ON PURPOSE AND SIDE EFFECTS. PT DENIES OTHER NEEDS AT THIS TIME.
--- NOTE | 2018-09-04 18:51 | NUR ---
PT REPORTS PAIN OF 8/10 TO LEFT HIP. PRN PO OXYCODONE ADMINISTERED. CALL LIGHT AND H2O IN REACH. VSS. PT DENIES FURTHER NEEDS/CONCERNS AT THIS TIME.
--- NOTE | 2018-09-04 20:11 | NUR ---
10/10 l hip pain. medicated with tylenol 650mg and toradol 15mg IV. cooperative with assessment, watching tv. in room
--- NOTE | 2018-09-04 22:22 | NUR ---
RESTING, EYES CLOSED,AWAKENS EASILY. NO C/O PAIN. RELIEF STATED, ICE TO L HIP. SCDS INPLACE, CALL LIGHT AT BEDSIDE
--- NOTE | 2018-09-04 23:10 | NUR ---
EMPTIED PT'S URINAL.
--- NOTE | 2018-09-05 00:02 | NUR ---
C/O 9/10 L HIP PAIN. L HIP MEPELEX DRESSING INTACT. MEDICATED WITH 10MG OXYCODONE. UP TO BR EARLIER, HAD BM. BACK IN BED, SCDS IN PLACE. TOLERATING MOVEMENT USING 1PA AND FWW WELL. CALL LLIGHT AT BEDSIDE
--- NOTE | 2018-09-05 02:41 | NUR ---
AWAKE, C/O L HIP PAIN, DRESSING CDI. SCDS IN PLACE, MEDICATED WITH SCHEDULED TORADOL 15MG iv AND TYLENOL 650MG PO, CALL LIGHT AND FLUIDS AT BEDSIDE, USING URINAL, VOIDING CLEAR URINE
--- NOTE | 2018-09-05 04:09 | NUR ---
RESTING, EYES CLOSED, NO FURTHER C/O PAIN, NO N/V, L HIP MEPILEX DRESSING COVERED W OPSITE IN PLACE, SCDS INPLACE, GOOD CMS. CALL LIGHT AT BEDSIDE
--- NOTE | 2018-09-05 05:59 | NUR ---
Currently resting, eys closed. Left hip w Mepilex dressing covered w Opsite, CDI. +1 edema. Gets up with 1 PA and FWW, scds in place, tolerated well. Voiding QS. Has been medicated with Scheduled Tylenol, Toradol and with Oxycodone 2x with fair to good pain relief. On room air. Call lihgt and fluids at bedside
--- NOTE | 2018-09-05 06:20 | NUR ---
VITALS AND I&OS DONE AND CHARTED. FRESH ICE WATER GIVEN. BEDSIDE TABLE AND CALL LIGHT IN REACH. PT ASKED ABOUT PAIN MEDS, I INFORMED RN MRAITZA.
--- NOTE | 2018-09-05 06:20 | NUR ---
c/o 8/10 L HIP PAIN. HIP W ICE TO AREA AND MEPILEX DRESSING IN PLACE. GOOD CMS. MEDICATED WITH 2 OXYCODONE 10MG PO. FLUIDS AND CALL LIGHT AT BEDSIDE.
--- NOTE | 2018-09-05 07:17 | NUR ---
RECIEVED BEDSIDE REPORT FROM NOEMI SALAS. PT IS RESTING, BUT AWAKES TO VOICE. PT HAS BEEN VOIDING AND HAS HAD BM. AMBULATES WITH 1PA AND FWW. PAIN CONTROLLED WITH PRN MEDICATIONS. SN LYNN WILL BE ASSISTING WITH CARES.
--- NOTE | 2018-09-05 09:10 | NUR ---
SPOKE WITH PATIENT IN ROOM. PATIENT STATES HE HASN'T BEEN OOB YET TODAY BUT THAT HE WANTS TO GO HOME TODAY. HE STATES HE THINKS HE CAN MOVE ABOUT HOME "JUST FINE". DISCUSSED FURTHER THERAPY NEEDS. DISCUSSED IF HE THINKS HE CAN CONTINUE OUTPATIENT THERAPY OR IF HOME HEALTH MIGHT BE NEEDED. HE STATES HE WOULD PREFER TO STAY WITH GOING TO "THERAPY AT THE [facility]". HE DOES NOT WANT THERAPY AT HOME. DISCUSSED IF HE DECIDES TO CHANGE HIS MIND, HE CAN CONTACT DR FRANZ OFFICE AND THEY CAN ORDER IT AFTER DISCHARGE. HE STATES HIS FAMILY CAN TAKE HIM TO APPOINTMENTS. DISCUSSED THAT PHYSCICAL THERAPY NEEDS TO SEE HIM TODAY AND THEN IT CAN BE DECIDED IF HE IS SAFE FOR DISCHAGE. HE AGREES TO THIS.
--- NOTE | 2018-09-05 10:13 | NUR ---
PT ALERT, ORIENTED AND AND AMBULATING IN HALLS WITH P.T.-USING FWW. PT IS FRIENDLY, WORKING HARD. EXTENDED ENCOURAGEMENT, HE THANKED ME. WILL FOLLOW NEEDED
--- NOTE | 2018-09-05 10:18 | NUR ---
FELICITY CEJA, IS OK WITH PT DISCHARGING HOME WHEN HIS ARRIVES. KEEP DRESSING ON UNTIL TOMORROW.
[2018-09-05] MEDS ORDERED: METOPROLOL TART25 MG PO (10:29)
--- NOTE | 2018-09-05 10:33 | NUR ---
PATIENT SITTING UP IN CHAIR. STUDENT RN IN ROOM. PATIENT GOES TO BATHROOM TO TAKE A SHOWER. ONE PERSON ASSISTING. PATIENT TAKES A SHOWER. TWO PERSON ASSISTING. PATIENT WAS SHAVED. PATIENT USING A CLEAN GOWN AND ADULT PULL UP. PATIENT BACKS TO CHAIR. CALL LIGHT WITHIN REACH. NO OTHER NEEDS AT THIS TIME
[2018-09-05] MEDS ORDERED: XARELTO10 MG PO (11:41)
[2018-09-05] MEDS ORDERED: NORCO 10-325 T1 EACH PO (11:43)
[2018-09-05] MEDS ORDERED: ULTRAM50 MG PO (11:43)
--- NOTE | 2018-09-05 11:48 | NUR ---
PATIENT SITTING UP IN CHAIR. IN ROOM. FINAL VITAL SIGNS WERE OBTAINED PRIOR TO DISCHARGE FROM THE UNIT. CALL LIGHT WITHIN REACH. NO OTHER NEEDS AT THIS TIME
--- NOTE | 2018-09-05 14:12 | NUR ---
PT DISCHARGED BY MD. BRENNA PA-C, IN TO VISIT PT. SHE AGREED WITH DC PLAN, RECOMMENDED FOLLOW UP WITH [facility] TO MONITOR CARDIAC MEDS. WILL FOLLOW UP WITH DR WRIGHT IN 2 WEEK TO MONITOR HIP. IV REMOVED BY STUDENT RN. WRITTEN AND VERBAL DISCHARGE INSTRUCTIONS GIVEN. PT AND HIS VERBALIZED UNDERSTANDING OF INSTRUCTIONS.
== END 2018-09-05 12:16 | disposition home or self-care (01) | DRG 470 ==
LOC: ED 14:10 → MS 16:33
PROVIDERS: ADMIT Orthopaedic Surgery
PROC: 0SRS01A Replacement of Left Hip Joint, Femoral Surface with Metal Synthetic Substitute, Uncemented, Open Approach (ICD-10-PCS; principal; 2018-09-03 07:00)
DX: S72.032A Displaced midcervical fracture of left femur, initial encounter for closed fracture (principal); R55 Syncope and collapse; I10 Essential (primary) hypertension; R91.8 Other nonspecific abnormal finding of lung field; E86.0 Dehydration; W18.30XA Fall on same level, unspecified, initial encounter; Z87.891 Personal history of nicotine dependence; Z79.899 Other long term (current) drug therapy; Z79.01 Long term (current) use of anticoagulants; Z79.891 Long term (current) use of opiate analgesic
CPT/HCPCS: 01214; 36415; 70450; 71045; 72170; 73060; 73501; 73552; 80048; 80053; 85025; 85610; 86850; 86900; 86901; 86920; 93005; 93010; 96374; 96375; 96376; 97110; 97116; 97162; 99285-25; C1776; J0690; J1100; J1170; J1885; J2250; J2270; J2274; J2405; J2704; J2765; J3010; J7120

== ENCOUNTER 2024-04-04 13:30 | Emergency (ER) | payer MEDICARE, OTHER ==
[~2024-04-04] VITALS: Ht 177.8 cm; Wt 71.4 kg
[~2024-04-04 13:30] MED LIST changes: +NORCO 10-325 T1 EACH PO; +ULTRAM50 MG PO
[2024-04-04] MEDS ORDERED: LEVOTHYROXINE75 MC1 PO (15:02)
[2024-04-04] MEDS ORDERED: NEURONTIN400 MG PO (15:02)
[2024-04-04] MEDS ORDERED: VITAMIN B-1250 MCG PO (15:03)
[2024-04-04] MEDS ORDERED: LIPITOR20 MG GT (15:03)
[2024-04-04] MEDS ORDERED: ASPIRIN81 MG PO (15:04)
[2024-04-04] MEDS ORDERED: STOOL SOFTENER240 MG PO (15:05)
[2024-04-04 15:10] VITALS: BP 130/82
== END 2024-04-04 15:11 | disposition home or self-care (01) ==
LOC: ED 13:30
DX: S40.012A Contusion of left shoulder, initial encounter (principal); S70.02XA Contusion of left hip, initial encounter; I10 Essential (primary) hypertension; Z87.891 Personal history of nicotine dependence; Z79.899 Other long term (current) drug therapy; Z96.642 Presence of left artificial hip joint; W18.31XA Fall on same level due to stepping on an object, initial encounter
CPT/HCPCS: 73030; 73502; 99283

== ENCOUNTER 2024-06-19 00:35 | Emergency (ER) | payer MEDICARE, OTHER ==
[~2024-06-19] VITALS: Ht 180.3 cm; Wt 73.5 kg
[~2024-06-19 00:35] MED LIST changes: +ASPIRIN81 MG PO; +LEVOTHYROXINE75 MC1 PO; +LIPITOR20 MG GT; +NEURONTIN400 MG PO; +STOOL SOFTENER240 MG PO; +VITAMIN B-1250 MCG PO
[2024-06-19] MEDS ORDERED: propofoL 100 ML IV ONE (00:43)
[2024-06-19] MEDS ORDERED: ETOMIDATE 40 MG/20 ML VIAL IV ONE (01:00)
[2024-06-19] MEDS ORDERED: ROCURONIUM BROMIDE 50 MG/5 ML SYR IV ONE (01:00)
[2024-06-19] MEDS ORDERED: propofoL 100 ML IV SCH ×2 (01:00→01:15)
[2024-06-19 01:01] LABS: BASOPHILS 0.7 % (0-2); EOSINOPHILS 0.9 % (0-6); HEMATOCRIT 41.3 % (35.0-50.0); HEMOGLOBIN 14.1 g/dL (12.0-18.0); LYMPHOCYTES 19.4 % (24-44); MCH 33.8 (27-36); MCHC 34.2 g/dl (30-36); MCV 98.8 fl (81-99); MONOCYTES 3.3 % (0-12); NEUTROPHILS 75.7 % (39-80); PLATELET COUNT 188 K/uL (140-440); RBC 4.18 M/ul (4.3-5.7)
[2024-06-19 01:02] LABS: BILIRUBIN, URINE NEGATIVE (negative); BLOOD/HGB, URINE SMALL (Negative); KETONE, URINE SMALL (Negative); LEUK ESTERASE, URINE NEGATIVE (negative); NITRITE, URINE NEGATIVE (negative)
[2024-06-19 01:07] LABS: BACTERIA, URINE RARE /hpf (negative); CASTS, URINE NONE SEEN \\lpf; COLLECTION TYPE, URINE CLEAN CATCH; CRYSTALS, URINE NONE SEEN (0-1+); EPITHELIAL CELLS, URINE SQUAMOUS 1+ /lpf (0-1+)
[2024-06-19 01:08] LABS: REFLEX CULTURE, URINE No (No)
[2024-06-19 01:16] LABS: AMPHETAMINES, URINE NEGATIVE (NEGATIVE); BARBITURATES, URINE NEGATIVE (NEGATIVE); BENZODIAZEPINE, URINE NEGATIVE (NEGATIVE); BUPRENORPHINE, URINE NEGATIVE (NEGATIVE); CANNABINOID, URINE NEGATIVE (NEGATIVE); COCAINE, URINE NEGATIVE (NEGATIVE); ECSTASY, URINE NEGATIVE (NEGATIVE); FENTANYL, URINE NEGATIVE (NEGATIVE); METHADONE, URINE NEGATIVE (NEGATIVE); OPIATES, URINE NEGATIVE (NEGATIVE); OXYCODONE, URINE NEGATIVE (NEGATIVE); PHENCYCLIDINE, URINE NEGATIVE (NEGATIVE)
[2024-06-19 01:16] LABS: ALBUMIN 4.2 g/dL (3.4-5.0); ALBUMIN/GLOBULIN RATIO 1.31 (1.1-2.4); ALCOHOL, MEDICAL <3 ng/dL (<3); ALKALINE PHOSPHATASE 118 U/L (46-116); ALT (SGPT) 20 U/L (14-59); ANION GAP 17.2 (7-21); AST (SGOT) 29 U/L (15-37); BILIRUBIN, TOTAL 0.5 ng/dL (0.2-1.0); BUN/CREATININE RATIO 25.71 (6.0-28.6); CARBON DIOXIDE 23 mmol/L (21-32); CHLORIDE 104 mmol/L (98-107); CREATININE, SERUM 1.05 mg/dL (0.70-1.30); GLOMERULAR FILTRATION RATE,EST 56 mL/min (>60); POTASSIUM 3.2 mmol/L (3.5-5.1); PROTEIN, TOTAL 7.4 g/dL (6.4-8.2); UREA NITROGEN 27 mg/dL (7-18)
[2024-06-19 01:22] LABS: PH, VENOUS 7.409 (7.31-7.41)
[2024-06-19] MEDS ORDERED: Sodium Chloride 3% 500 ML IV ONE (01:45)
[2024-06-19] MEDS ORDERED: SODIUM CHLORIDE 0.9% 1,000 ML IV SCH (01:45)
[2024-06-19] MEDS ORDERED: METOPROLOL TARTRATE 5 MG/5 ML VIAL IV ONE (01:45)
[2024-06-19 01:47] LABS: INR 0.96 (0.80-1.30); PROTIME 12.7 Sec (11.2-14.2)
[2024-06-19] MEDS ORDERED: LEVOTHYROXINE75 MC1 PO (02:10)
[2024-06-19] MEDS ORDERED: LIPITOR20 MG PO (02:11)
[2024-06-19] MEDS ORDERED: DOCUSATE SODIU100 MG PO (02:11)
[2024-06-19] MEDS ORDERED: B-121000 MC2 PO (02:12)
[2024-06-19] MEDS ORDERED: HYDROCODON-ACE1 EAC8 PO (02:13)
[2024-06-19] MEDS ORDERED: GABAPENTIN400 MG PO (02:13)
[2024-06-19] MEDS ORDERED: HUMAN PROTHROMBIN COMPLX(PCC) 500 UNIT/20 ML VIAL IV ONE (02:15)
[2024-06-19] MEDS ORDERED: SODIUM CHLORIDE 0.9% 50 ML IV PRN (02:15)
[2024-06-19] MEDS ORDERED: diphenhydrAMINE HCL 50 MG/ML VIAL IV PRN (02:15)
[2024-06-19 06:56] VITALS: BP 00/00
--- NOTE | 2024-06-19 22:12 | EKG ---
[facility] [address] [facility] [place] [address] Signed Sinus tachycardia with occasional premature ventricular complexes Nonspecific ST abnormality Abnormal ECG No previous ECGs available Confirmed by Foreign Burgos MD () on 06/19/2024 10:11:56 PM Electronically Signed By: FOREIGN BURGOS MD 06/19/242211 PATIENT NAME: YESIKA RODRIGUEZ Electrocardiogram DATE OF : 47 PHYSICIAN: FOREIGN BURGOS MD REPORT #: [id number] REPORT IS CONFIDENTIAL AND NOT TO BE RELEASED WITHOUT AUTHORIZATION
== END 2024-06-19 07:15 ==
LOC: ED 00:35 → EDBD 00:39 → ED 07:15
PROVIDERS: Family Medicine
DX: I62.01 Nontraumatic acute subdural hemorrhage (principal); I60.9 Nontraumatic subarachnoid hemorrhage, unspecified; I61.8 Other nontraumatic intracerebral hemorrhage; R40.2A Nontraumatic coma due to underlying condition; T45.515A Adverse effect of anticoagulants, initial encounter; G93.5 Compression of brain; I10 Essential (primary) hypertension; E78.00 Pure hypercholesterolemia, unspecified; Z79.890 Hormone replacement therapy; Z79.01 Long term (current) use of anticoagulants; Z79.82 Long term (current) use of aspirin; Z79.899 Other long term (current) drug therapy
CPT/HCPCS: 31500; 36415; 36556; 43752; 51702; 70450; 71045; 80053; 80307; 81001; 82803; 83605; 84484; 85025; 85610; 85730; 87040; 87077; 87186; 93005; 93010; 94002; 94799; 99285-25; G0480; J2704; J3490; J7030; J7131; J7168